=== PATIENT | male | born 1970 | race Caucasian/White ===

== ENCOUNTER 2018-07-15 18:49 | Inpatient (IN) | payer MEDICARE ==
--- NOTE | 2018-07-15 19:16 | ED ---
Lower Extremity - HPI Summary HPI Summary: A 48 y/o M TOMY presents to ED with c/o LE edema, R worse than L, onset two days ago. Associated sx: weeping from RLE. Denies fever, dyspnea, LE pain. Pt used to be seen at the wound clinic in [place] once a week, but last went approx 4-5 months ago. PMHx: enlarged heart. Denies previous CA. Rare ETOH. - History of Current Complaint Chief Complaint: EDExtremityLower Stated Complaint: EDEMA IN BOTH FEET Time Seen by Provider: 07/15/18 19:14 Hx Obtained From: Patient Onset/Duration: Days - weeping onset 2 days ago Severity Initially: Moderate Severity Currently: Moderate Pain Intensity: 0 Pain Scale Used: 0-10 Numeric Timing: Constant Associated Signs And Symptoms: Positive: Other - weeping from RLE - Allergies/Home Medications Allergies/Adverse Reactions: Allergies Allergy/AdvReac Type Severity Reaction Status Date / Time No Known Allergies Allergy Verified 05/06/15 23:14 Home Medications: Home Medications Lasix 10 mg PO DAILY 07/15/18 [History Confirmed 07/15/18] PMH/Surg Hx/FS Hx/Imm Hx Previously Healthy: No - pos: morbidly obese Cardiovascular History: Reports: Hx Hypertension, Other Cardiovascular Problems/ Disorders - enlarged heart Denies: Hx Myocardial Infarction Musculoskeletal History: Reports: Other Musculoskeletal History - chronic LE edema Infectious Disease History: No Infectious Disease History: Denies: Traveled Outside the [place] in Last 30 Days - Family History Known Family History: Positive: Hypertension Negative: Cardiac Disease, Diabetes - Social History Occupation: Employed Full-time Lives: Alone Alcohol Use: None Hx Substance Use: No Substance Use Type: Reports: None Hx Tobacco Use: Yes Smoking Status (MU): Heavy Every Day Tobacco Smoker Review of Systems Negative: Fever Positive: Other - neg: dyspnea Positive: Edema - bilat LE, Other - RLE weeping. Negative: Myalgia - LE All Other Systems Reviewed And Are Negative: Yes Physical Exam - Summary Physical Exam Summary: VITAL SIGNS: Reviewed. GENERAL: Patient is a morbidly obese MALE who is lying comfortable in the stretcher. Patient is not in any acute respiratory distress. HEAD AND FACE: No signs of trauma. No ecchymosis, hematomas or skull depressions. No sinus tenderness. EYES: PERRLA, EOMI x 2, No injected conjunctiva, no nystagmus. EARS: Hearing grossly intact. Ear canals and tympanic membranes are within normal limits. MOUTH: Oropharynx within normal limits. NECK: Supple, trachea is midline, no adenopathy, no JVD, no carotid bruit, no c- spine tenderness, neck with full ROM. CHEST: Symmetric, no tenderness at palpation LUNGS: Clear to auscultation bilaterally. No wheezing or crackles. Decreased breath sounds bilaterally. CVS: Tachy, S1 and S2 present, no murmurs or gallops appreciated. ABDOMEN: The lower abd is edematous, erythematous, tender EXTREMITIES: Bilat LE edema with thickened skin, weeping and malodorous NEUROVASCULAR: Intact including LE. Good sensation bilaterally. I was unable to feel his pulses due to the edema, but both legs are normal temperature. NEURO: Alert and oriented x 3. No acute neurological deficits. Speech is normal and follows commands. SKIN: Dry and warm, pale GENITAL: The scrotum is edematous, erythematous, tender Triage Information Reviewed: Yes Vital Signs On Initial Exam: Initial Vitals Temp Pulse Resp BP Pulse Ox 98.1 F 113 26 168/107 96 07/15/18 18:54 07/15/18 18:54 07/15/18 18:54 07/15/18 18:54 07/15/18 18:54 Vital Signs Reviewed: Yes Diagnostics - Vital Signs Vital Signs Temp Pulse Resp BP Pulse Ox 07/15/18 18:54 98.1 F 113 26 168/107 96 - Laboratory Result Diagrams: 07/15/18 20:30 07/15/18 20:30 Lab Statement: Any lab studies that have been ordered have been reviewed, and results considered in the medical decision making process. - Radiology CXR Xray Interpretation: Positive (See Comments) - Cardiomegaly and bilateral venous congestion consistent with congestive heart failure Radiology Interpretation Completed By: ED Physician - Pending official report. - EKG 1945 Cardiac Rate: NL - at 95 bpm EKG Rhythm: Sinus Rhythm ST Segment: Non-Specific - Diffuse Subtle ST depression. EKG Interpretation: nml axis, RBBB Re-Evaluation - Re-Evaluation 1 Re-Evaluation Time: 21:01 Change: Worse Comment: Pt is c/o SOB. He notes being in the [facility] 2 months ago for similar sx. Lower Extremity Course/Dx - Course Course Of Treatment: Pt is a 48 y/o morbidly obese M presenting with bilat LE edema and weeping. He denies fever, dyspnea, LE pain. Upon PE, found bilat LE edema with thickened skin that was weeping and malodorous. The lower abd and scrotum were edematous, erythematour, and tender. Pt was being seen at the wound clinic in [place] once a week, but last went approx 4-5 months ago. - Diagnoses Provider Diagnoses: CHF (congestive heart failure), Morbid obesity, Bilateral edema of lower extremity, Lower extremity cellulitis - Physician Notifications Discussed Care Of Patient With: Andrew Quiros MD - Hospitalist Time Discussed With Above Provider: 21:23 Instructed by Provider To: Admit As Inpatient Discharge - Sign-Out/Discharge Documenting (check all that apply): Patient Departure - ADM - Discharge Plan Condition: Fair Disposition: ADMITTED TO [facility] Referrals: Dahlia Cabrera MD [Primary Care Provider] - - Billing Disposition and Condition Condition: FAIR Disposition: Admitted to [facility] - Attestation Statements Document Initiated by Scribe: Yes Documenting Scribe: Emily Austin Provider For Whom Scribe is Documenting (Include Credential): Dr. Aiyana Mccoy MD Scribe Attestation: Emily Chin scribed for Dr. Aiyana Mccoy MD on 07/15/18 at 2210. Scribe Documentation Reviewed: Yes Provider Attestation: The documentation as recorded by the Emily pang accurately reflects the service I personally performed and the decisions made by Dr. Aiyana wray MD
[2018-07-15] MEDS ORDERED: Vancomycin(*) 1,000 MG in NS 0.9% 250 ML* 250 ML IVPB ONE (19:37)
[2018-07-15] MEDS ORDERED: Furosemide IV* 10 MG/ML VIAL (40 MG) IV ONE ×2 (20:09→21:04)
[2018-07-15 20:51] LABS: ABS Basophils 0 10^3/ul (0-0.2); ABS Eosinophils 0.2 10^3/ul (0-0.6); ABS Lymphocytes 0.9 10^3/ul (1.0-4.8); ABS Monocytes 0.5 10^3/ul (0-0.8); ABS Neutrophils 4.3 10^3/ul (1.5-7.7); ABS Nucleated RBC 0 10^3/ul; Eosinophil % 2.8 % (0-6); Hematocrit 41 % (42-52); Hemoglobin 13.4 g/dl (14.0-18.0); Lymphocyte % 14.7 % (25-47); Mean Corpuscular HGB Conc 32 g/dl (31-36); Mean Corpuscular Hemoglobin 27 pg (27-31); Mean Corpuscular Volume 82 fL (80-94); Mean Platelet Volume 7.7 um3 (7.4-10.4); Nucleated Red Blood Cells % 0.1; Platelet Count 317 10^3/ul (150-450); Red Blood Count 5.06 10^6/ul (4.00-5.40); Red Cell Distribution Width 18 % (10.5-15); White Blood Count 5.8 10^3/ul (3.5-10.8)
[2018-07-15 20:59] LABS: Urine Appearance Clear; Urine Blood 3+ (Negative); Urine Color Amber; Urine Ketones Trace (Negative); Urine Protein 2+(100 mg/dL) (Negative); Urine Red Blood Cell 2+(6-10/hpf) (Absent); Urine Specific Gravity 1.024 (1.010-1.030); Urine Urobilinogen Positive (Negative); Urine White Blood Cell 1+(6-10/hpf) (Absent)
[2018-07-15 21:01] LABS: INR 1.14 (0.77-1.02)
[2018-07-15] MEDS ORDERED: Furosemide IV* 10 MG/ML VIAL (40 MG) ONE (21:03)
[2018-07-15] MEDS ORDERED: Nitroglycerin 2% OINT* 1 GM PAK ONE (21:03)
[2018-07-15] MEDS ORDERED: Nitroglycerin 2% OINT* 1 GM PAK TOPICAL ONE (21:05)
[2018-07-15 21:06] LABS: EGFR Non-African American 111.6 (>60)
[2018-07-15] MEDS ORDERED: Clopidogrel TAB* 300 MG PO ONE (21:18)
[2018-07-15] MEDS ORDERED: Aspirin 81 mg CHEW TAB* 81 MG TAB.CHEW PO ONE (21:25)
[2018-07-15] MEDS ORDERED: Lidocaine 2% JELLY* 6 ML JELLY TOPICAL ONE (21:39)
[2018-07-15] MEDS ORDERED: Enoxaparin(*) 80 MG/0.8 ML SYR SUBCUT SCH (22:00)
--- NOTE | 2018-07-15 22:01 | HP ---
H&P (Free Text) History and Physical: PCP: Daquan Cabrera MD Date/Time: 07/15/2018 2130 CC: swollen legs HPI: Mr Epperson is a 48YO male HX chronic peripheral edema & super morbid obesity presents with weeping of his BLE for the past 2 days with onset of SOB today. He denies F/C, sweats, chest discomfort, palpitations, light-headedness, N/V/D, LE pain, or changes in bowel/bladder. He became concerned about the weeping of his legs and called EMS. During ED evaluation his saO2 on RA dropped into the 70s and BiPap was initiated. pCXR revealed pulmonary edema. Labs were most notable for troponin of 0.22 and BNP of 416. ABG showed a mild respiratory acidosis w/ pH 7.34, pCO2 48, pO2 101, HCO3 24 on 100% fiO2. PMedHx peripheral edema super morbid obesity pneumonia complicated by collapsed R lung Ambulatory Orders NK [No Home Medications Reported] 07/15/18 Allergies No Known Allergies Allergy (Verified 05/06/15 23:14) PSurgHx R lung surgery to repair collapse SocHx: 1/2PPD cigarettes w/ >10PYHX, <2 alcoholic drinks weekly, denies recreational drugs; lives alone; disabled; full code status FamHx: Mother passed at 63YO 2nd brain stem aneurysm. Father is alive without known illness. Sister & brother are reportedly healthy. ROS: as above, otherwise reviewed and all were negative vitals: Vital Signs Temp 36.7 C 07/15/18 18:54 Pulse 104 07/15/18 21:05 Resp 32 07/15/18 21:05 BP 169/90 07/15/18 21:05 Pulse Ox 76 07/15/18 21:05 Intake & Output 07/14/18 07/15/18 07/15/18 23:59 11:59 23:59 Weight 167.829 kg Constitutional: NAD, normally developed, malodorous super morbidly obese white male HEENM: atraumatic; sclera/conjunctiva: anicteric/clear; hearing: clinically intact; oropharynx: clear, mucosa moist Neck: soft tissue: nontender; thyroid: normal Pulmonary: BiPap 16/8 100%, diminished bilaterally with scant bibasilar fine crackles, fair aeration, no accessory muscle use CV: TR/RR, normal S1S2, no carotid bruit, no jugular venous distention, trace B DP/PT, severe chronic BLE edema with weeping areas Abdominal: soft, non-distended, non-tender, no rebound/guarding/rigidity, normoactive bowel sounds, no hepatosplenomegaly or masses, no costovertebral angle tenderness Musculoskeletal: general: grossly intact, non-tender Integumental: chronic severe hyperkeratosis BLE with weeping areas but no overt purulence or erythema Psychiatric orientation: AA&O to PPS affect: calm mood: cooperative eye contact: fair to good content: reliable responses: timely insight: fair to poor Testing: Lab Results 07/15/18 07/15/18 07/15/18 Range/Units 20:30 20:30 20:30 WBC 5.8 (3.5-10.8) 10^3/ul RBC 5.06 (4.00-5.40) 10^6/ul Hgb 13.4 L (14.0-18.0) g/dl Hct 41 L (42-52) % MCV 82 (80-94) fL MCH 27 (27-31) pg MCHC 32 (31-36) g/dl RDW 18 H (10.5-15) % Plt Count 317 (150-450) 10^3/ul MPV 7.7 (7.4-10.4) um3 Neut % (Auto) 73.5 (38-83) % Lymph % (Auto) 14.7 L (25-47) % Faulkner % (Auto) 8.5 H (0-7) % Eos % (Auto) 2.8 (0-6) % Baso % (Auto) 0.5 (0-2) % Absolute Neuts (auto) 4.3 (1.5-7.7) 10^3/ul Absolute Lymphs (auto) 0.9 L (1.0-4.8) 10^3/ul Absolute Monos (auto) 0.5 (0-0.8) 10^3/ul Absolute Eos (auto) 0.2 (0-0.6) 10^3/ul Absolute Basos (auto) 0 (0-0.2) 10^3/ul Absolute Nucleated RBC 0 10^3/ul Nucleated RBC % 0.1 INR (Anticoag Therapy) 1.14 H (0.77-1.02) APTT 32.2 (26.0-36.3) seconds Patient Temperature ABG pH (7.35-7.45) ABG pH (Temp Correct) ABG pCO2 (35-45) mmHg ABG pCO2 (Temp Corrct ABG pO2 (80-100) mmHg ABG pO2 (Temp Correct ABG HCO3 (19-31) mmol/L ABG O2 Saturation (95-98) % ABG Base Excess (-2.0-2.0) Respiration Rate O2 Delivery Device Ventilator Type Vent Mode FiO2 Inspiratory Time PEEP Pressure Support Pressure Control EPAP IPAP BiPAP Sodium 139 (135-145) mmol/L Potassium 3.7 (3.5-5.0) mmol/L Chloride 106 (101-111) mmol/L Carbon Dioxide 25 (22-32) mmol/L Anion Gap 8 (2-11) mmol/L BUN 15 (6-24) mg/dL Creatinine 0.75 (0.67-1.17) mg/dL Est GFR ( Amer) 135.1 (>60) Est GFR (Non-Af Amer) 111.6 (>60) BUN/Creatinine Ratio 20.0 (8-20) Glucose 90 (70-100) mg/dL Lactic Acid (0.5-2.0) mmol/L Calcium 8.7 (8.6-10.3) mg/dL Total Bilirubin 1.70 H (0.2-1.0) mg/dL AST 41 H (13-39) U/L ALT 21 (7-52) U/L Alkaline Phosphatase 123 H (34-104) U/L Total Creatine Kinase 342 H (10-223) U/L Troponin I 0.22 H* (<0.04) ng/mL C-Reactive Protein 95.08 H (<8.01) mg/L B-Natriuretic Peptide ( - 100) pg/mL Total Protein 7.2 (6.4-8.9) g/dL Albumin 3.0 L (3.2-5.2) g/dL Globulin 4.2 H (2-4) g/dL Albumin/Globulin Ratio 0.7 L (1-3) Urine Color Urine Appearance Urine pH (5-9) Ur Specific [place] (1.010-1.030) Urine Protein (Negative) Urine Ketones (Negative) Urine Blood (Negative) Urine Nitrate (Negative) Urine Bilirubin (Negative) Urine Urobilinogen (Negative) Ur Leukocyte Esterase (Negative) Urine WBC (Auto) (Absent) Urine RBC (Auto) (Absent) Ur Squamous Epith Cells (Absent) Calcium Oxalate Crystal (Absent) Urine Bacteria (Absent) Hyaline Casts (Absent) Urine Glucose (Negative) Blood Type Antibody Screen 07/15/18 07/15/18 07/15/18 Range/Units 20:31 20:33 20:34 WBC (3.5-10.8) 10^3/ul RBC (4.00-5.40) 10^6/ul Hgb (14.0-18.0) g/dl Hct (42-52) % MCV (80-94) fL MCH (27-31) pg MCHC (31-36) g/dl RDW (10.5-15) % Plt Count (150-450) 10^3/ul MPV (7.4-10.4) um3 Neut % (Auto) (38-83) % Lymph % (Auto) (25-47) % Faulkner % (Auto) (0-7) % Eos % (Auto) (0-6) % Baso % (Auto) (0-2) % Absolute Neuts (auto) (1.5-7.7) 10^3/ul Absolute Lymphs (auto) (1.0-4.8) 10^3/ul Absolute Monos (auto) (0-0.8) 10^3/ul Absolute Eos (auto) (0-0.6) 10^3/ul Absolute Basos (auto) (0-0.2) 10^3/ul Absolute Nucleated RBC 10^3/ul Nucleated RBC % INR (Anticoag Therapy) (0.77-1.02) APTT (26.0-36.3) seconds Patient Temperature ABG pH (7.35-7.45) ABG pH (Temp Correct) ABG pCO2 (35-45) mmHg ABG pCO2 (Temp Corrct ABG pO2 (80-100) mmHg ABG pO2 (Temp Correct ABG HCO3 (19-31) mmol/L ABG O2 Saturation (95-98) % ABG Base Excess (-2.0-2.0) Respiration Rate O2 Delivery Device Ventilator Type Vent Mode FiO2 Inspiratory Time PEEP Pressure Support Pressure Control EPAP IPAP BiPAP Sodium (135-145) mmol/L Potassium (3.5-5.0) mmol/L Chloride (101-111) mmol/L Carbon Dioxide (22-32) mmol/L Anion Gap (2-11) mmol/L BUN (6-24) mg/dL Creatinine (0.67-1.17) mg/dL Est GFR ( Amer) (>60) Est GFR (Non-Af Amer) (>60) BUN/Creatinine Ratio (8-20) Glucose (70-100) mg/dL Lactic Acid 0.7 (0.5-2.0) mmol/L Calcium (8.6-10.3) mg/dL Total Bilirubin (0.2-1.0) mg/dL AST (13-39) U/L ALT (7-52) U/L Alkaline Phosphatase (34-104) U/L Total Creatine Kinase (10-223) U/L Troponin I (<0.04) ng/mL C-Reactive Protein (<8.01) mg/L B-Natriuretic Peptide 416 H ( - 100) pg/mL Total Protein (6.4-8.9) g/dL Albumin (3.2-5.2) g/dL Globulin (2-4) g/dL Albumin/Globulin Ratio (1-3) Urine Color Jayne Urine Appearance Clear Urine pH 6.0 (5-9) Ur Specific [place] 1.024 (1.010-1.030) Urine Protein 2+(100 mg/dl) A (Negative) Urine Ketones Trace A (Negative) Urine Blood 3+ A (Negative) Urine Nitrate Negative (Negative) Urine Bilirubin Negative (Negative) Urine Urobilinogen Positive A (Negative) Ur Leukocyte Esterase Trace A (Negative) Urine WBC (Auto) 1+(6-10/hpf) A (Absent) Urine RBC (Auto) 2+(6-10/hpf) A (Absent) Ur Squamous Epith Cells Present A (Absent) Calcium Oxalate Crystal Present A (Absent) Urine Bacteria Absent (Absent) Hyaline Casts Present A (Absent) Urine Glucose Negative (Negative) Blood Type Antibody Screen 07/15/18 07/15/18 Range/Units 20:34 21:20 WBC (3.5-10.8) 10^3/ul RBC (4.00-5.40) 10^6/ul Hgb (14.0-18.0) g/dl Hct (42-52) % MCV (80-94) fL MCH (27-31) pg MCHC (31-36) g/dl RDW (10.5-15) % Plt Count (150-450) 10^3/ul MPV (7.4-10.4) um3 Neut % (Auto) (38-83) % Lymph % (Auto) (25-47) % Faulkner % (Auto) (0-7) % Eos % (Auto) (0-6) % Baso % (Auto) (0-2) % Absolute Neuts (auto) (1.5-7.7) 10^3/ul Absolute Lymphs (auto) (1.0-4.8) 10^3/ul Absolute Monos (auto) (0-0.8) 10^3/ul Absolute Eos (auto) (0-0.6) 10^3/ul Absolute Basos (auto) (0-0.2) 10^3/ul Absolute Nucleated RBC 10^3/ul Nucleated RBC % INR (Anticoag Therapy) (0.77-1.02) APTT (26.0-36.3) seconds Patient Temperature Not Reportable ABG pH 7.34 L (7.35-7.45) ABG pH (Temp Correct) Not Reportable ABG pCO2 48 H (35-45) mmHg ABG pCO2 (Temp Corrct Not Reportable ABG pO2 101 H (80-100) mmHg ABG pO2 (Temp Correct Not Reportable ABG HCO3 24.4 (19-31) mmol/L ABG O2 Saturation 97.7 (95-98) % ABG Base Excess -0.5 (-2.0-2.0) Respiration Rate 20 O2 Delivery Device Bipap Ventilator Type Not Reportable Vent Mode Not Reportable FiO2 100 Inspiratory Time Not Reportable PEEP Not Reportable Pressure Support Not Reportable Pressure Control Not Reportable EPAP 8 IPAP 16 BiPAP Not Reportable Sodium (135-145) mmol/L Potassium (3.5-5.0) mmol/L Chloride (101-111) mmol/L Carbon Dioxide (22-32) mmol/L Anion Gap (2-11) mmol/L BUN (6-24) mg/dL Creatinine (0.67-1.17) mg/dL Est GFR ( Amer) (>60) Est GFR (Non-Af Amer) (>60) BUN/Creatinine Ratio (8-20) Glucose (70-100) mg/dL Lactic Acid (0.5-2.0) mmol/L Calcium (8.6-10.3) mg/dL Total Bilirubin (0.2-1.0) mg/dL AST (13-39) U/L ALT (7-52) U/L Alkaline Phosphatase (34-104) U/L Total Creatine Kinase (10-223) U/L Troponin I (<0.04) ng/mL C-Reactive Protein (<8.01) mg/L B-Natriuretic Peptide ( - 100) pg/mL Total Protein (6.4-8.9) g/dL Albumin (3.2-5.2) g/dL Globulin (2-4) g/dL Albumin/Globulin Ratio (1-3) Urine Color Urine Appearance Urine pH (5-9) Ur Specific [place] (1.010-1.030) Urine Protein (Negative) Urine Ketones (Negative) Urine Blood (Negative) Urine Nitrate (Negative) Urine Bilirubin (Negative) Urine Urobilinogen (Negative) Ur Leukocyte Esterase (Negative) Urine WBC (Auto) (Absent) Urine RBC (Auto) (Absent) Ur Squamous Epith Cells (Absent) Calcium Oxalate Crystal (Absent) Urine Bacteria (Absent) Hyaline Casts (Absent) Urine Glucose (Negative) Blood Type O Negative Antibody Screen Pending ECG, personally reviewed: sinus RBBB rate 95, diffuse non-diagnostic ST-T abnormalities; no comparison CXR, personally reviewed: cardiomegaly with cephalization & congestive changes; no comparison Impression: 48M HX peripheral edema, super morbid obesity, & pneumonia complicated by collapsed R lung presents with acute systolic HF & NSTEMI DIAGNOSIS & PLAN Primary acute systolic HF with 2nd hypoxic respiratory failure : furosemide diuresis : strict I&Os : daily weights : 1500cc/day fluid restriction when cleared to take PO : NPO x/ meds w/ sips water : ECHO in AM : BiPap 16/8 @ 100% fiO2 : ICU monitoring : supportive care elevated troponin : uncertain if demand or primary : aspirin 324mg chew given in ED : clopidogrel 300mg given in ED : enoxaparin 1mg/kg given in ED, will continue : no beta jeanne 2nd acute decompensated HF elevated d-dimer : given enoxaparin 160mg SQ in ED, will continue : consider CTA chest once further stabilized to r/o PE Secondary chronic BLE edema : consider referral to lymphedema clinic upon D/C super morbid obesity : consider referral for bariatric surgical evaluation upon D/C Admission Rational: Inpatient as without the above interventions the risk of impending adverse outcome is unacceptably high; inappropriate for the outpatient setting DVTp: enoxaparin 1mg/kg SQ BID Code Status: full HCP: mother Michelle hCu Critical Care time: 65minutes with >50% spent at the bedside obtaining a history , performing the examination, advising of diagnosis & treatment options along with risks/benefits/reasoning; remainder spent discussing with ER MD, reviewing labs and radiology exams
[2018-07-15] MEDS ORDERED: Acetaminophen TAB* 325 MG PO PRN (22:38)
[2018-07-15] MEDS ORDERED: traMADol TAB* 50 MG PO PRN (22:40)
[2018-07-15] MEDS ORDERED: Ondansetron ODT TAB* 4 MG PO PRN (22:40)
[2018-07-15] MEDS ORDERED: Mouth Piece, Nicotine* 1 EACH CARTRIDGE INH ONE (22:48)
[2018-07-16 05:30] LABS: Hematocrit 41 % (42-52); Hemoglobin 13.1 g/dl (14.0-18.0); Mean Corpuscular HGB Conc 32 g/dl (31-36); Mean Corpuscular Hemoglobin 26 pg (27-31); Mean Corpuscular Volume 79 fL (80-94); Mean Platelet Volume 7.3 um3 (7.4-10.4); Platelet Count 312 10^3/ul (150-450); Red Blood Count 5.13 10^6/ul (4.00-5.40); Red Cell Distribution Width 18 % (10.5-15); White Blood Count 6.8 10^3/ul (3.5-10.8)
[2018-07-16] MEDS: Omeprazole CAP* 20 MG PO SCH (06:45)
[2018-07-16] MEDS: Nicotine Inhaler* 10 MG AMP INH PRN (06:49)
--- NOTE | 2018-07-16 07:37 | RAD ---
Indication: Shortness of breath. Bilateral lower extremity edema. Single frontal view of the chest performed at 1949 hours was reviewed. No prior study is available. Cardiomegaly. Mild interstitial prominence consistent with vascular congestion is noted. IMPRESSION: CARDIOMEGALY WITH VASCULAR CONGESTION. R0
[2018-07-16] MEDS: Furosemide IV* 10 MG/ML 10 ML VIAL (100 MG) IV SCH ×2 (07:49→12:09)
[2018-07-16] MEDS: Docusate CAP* 100 MG PO SCH ×2 (07:49→21:13)
[2018-07-16] MEDS ORDERED: Vancomycin(*) 2,000 MG in NS 0.9% 500 ML* 500 ML IVPB ONE (08:00)
[2018-07-16] MEDS: Cefepime 1 GM in Dextrose(*) 1 GM/50 ML BAG IV SCH ×2 (08:03→19:54)
--- NOTE | 2018-07-16 08:17 | PN ---
Subjective Date of Service: 07/16/18 Interval History: Pt is feeling ok today. He denies any SOB currently (he is on BiPAP at the time of my evaluation). He denies pain. He states his legs have been swollen at the current level for quite some time but only started weeping a few days ago. Objective Active Medications: Acetaminophen (Tylenol Tab*) 650 mg PO Q6H PRN PRN Reason: FEVER/PAIN Docusate Sodium (Colace Cap*) 200 mg PO BID [facility] Last Admin: 07/16/18 07:49 Dose: 200 mg Enoxaparin Sodium (Lovenox(*)) 160 mg SUBCUT Q12H [facility] Furosemide (Lasix Iv*) 60 mg IV 0800,1200 [facility] Last Admin: 07/16/18 07:49 Dose: 60 mg Cefepime HCl (Maxipime 1 Gm In Dextrose Duplex (*)) 1 gm in 50 mls @ 100 mls/ hr IV Q12H [facility] Last Admin: 07/16/18 08:03 Dose: 100 mls/hr Vancomycin HCl 2,000 mg/ (Sodium Chloride) 500 mls @ 250 mls/hr IVPB ONCE ONE; Protocol Stop: 07/16/18 09:59 Melatonin (Melatonin) 3 mg PO BEDTIME PRN; Protocol PRN Reason: Sleep Nicotine (Nicotine Inhaler*) 10 mg INH Q2H PRN PRN Reason: CRAVING Last Admin: 07/16/18 06:49 Dose: 10 mg Omeprazole (Prilosec Cap*) 20 mg PO DAILY@0600 [facility] Last Admin: 07/16/18 06:45 Dose: 20 mg Ondansetron HCl (Zofran Odt Tab*) 4 mg PO Q6H PRN PRN Reason: n/v Tramadol HCl (Ultram*) 50 mg PO Q6H PRN PRN Reason: PAIN Vital Signs - 8 hr 07/16/18 07/16/18 07/16/18 00:24 00:54 01:00 Temperature Pulse Rate 84 Respiratory 11 17 Rate Blood Pressure 151/110 (mmHg) O2 Sat by Pulse 100 100 Oximetry 07/16/18 07/16/18 07/16/18 01:05 01:16 01:18 Temperature 97 F Pulse Rate 96 92 92 Respiratory 17 23 Rate Blood Pressure 160/108 141/97 (mmHg) O2 Sat by Pulse 100 100 95 Oximetry 07/16/18 07/16/18 07/16/18 01:20 01:27 01:31 Temperature 98.3 F Pulse Rate 85 98 81 Respiratory 23 20 22 Rate Blood Pressure 141/97 147/102 145/81 (mmHg) O2 Sat by Pulse 100 100 100 Oximetry 07/16/18 07/16/18 07/16/18 01:46 02:00 02:01 Temperature Pulse Rate 83 83 81 Respiratory 22 19 20 Rate Blood Pressure 137/86 133/75 (mmHg) O2 Sat by Pulse 100 100 100 Oximetry 07/16/18 07/16/18 07/16/18 03:00 03:25 04:00 Temperature 97.0 F Pulse Rate 87 84 Respiratory 21 20 Rate Blood Pressure (mmHg) O2 Sat by Pulse 100 100 Oximetry 07/16/18 07/16/18 07/16/18 04:31 05:00 05:01 Temperature Pulse Rate 86 85 85 Respiratory 21 22 21 Rate Blood Pressure 121/68 111/60 (mmHg) O2 Sat by Pulse 100 98 99 Oximetry 07/16/18 07/16/18 07/16/18 06:00 06:01 08:00 Temperature 98.7 F Pulse Rate 85 86 Respiratory 23 22 Rate Blood Pressure 135/63 (mmHg) O2 Sat by Pulse 98 99 Oximetry Oxygen Devices in Use Now: Nasal Cannula Appearance: Super morbidly obese male sitting up in bed with BiPAP on, NAD Eyes: No Scleral Icterus Ears/Nose/Mouth/Throat: Mucous Membranes Moist Respiratory: Symmetrical Chest Expansion and Respiratory Effort, Clear to Auscultation - anteriorly Cardiovascular: NL Sounds; No Murmurs; No JVD, RRR, - - marked anasarca to waist Abdominal: NL Sounds; No Tenderness; No Distention Extremities: No Clubbing, Cyanosis Skin: - - very thickened, fissured, skin noted on both lower legs L>R, from the left lower leg there is purulent drainage Neurological: Alert and Oriented x 3 Result Diagrams: 07/16/18 05:20 07/16/18 05:20 Microbiology and Other Data: Microbiology 07/16/18 01:05 Nasal Screen MRSA (PCR) - Final Nasal Mrsa Not Detected Assess/Plan/Problems-Billing Mr Epperson is a 48 yo M who states he is "in between doctors currently" who is on no medications and is super morbidly obese who presented to the ER with c/o weeping from the legs and was admitted for possible decompensated CHF. - Patient Problems (1) Acute decompensated heart failure Current Visit: Yes Status: Acute Code(s): I50.9 - HEART FAILURE, UNSPECIFIED SNOMED Code(s): 38422373 Comment: Pt likely with acute on chronic decompensated CHF. Pt needs echo to determine type. Plan for echo this AM. Cardiology consult pending. Will continue BID IV lasix and monitor I/Os very closely. I suspect much of his LE edema is secondary to lymphedema and may not respond to IV diuresis. (2) Cellulitis and abscess of left leg Current Visit: Yes Status: Acute Code(s): L03.116 - CELLULITIS OF LEFT LOWER LIMB; L02.416 - CUTANEOUS ABSCESS OF LEFT LOWER LIMB SNOMED Code(s): 938021312 Comment: While the patient is afebrile and does not have a leukocytosis he has purulent drainage leaking from 2 different spots on the left lower leg. Will start vancomycin and cefepime for now. Will try to obtain US or CT today to eval for underlying abscess. There is marked erythema of both legs especially noted on the feet and thighs. Monitor for improvement in appearance and smell (very foul smelling). (3) Elevated troponin Current Visit: Yes Status: Acute Code(s): R74.8 - ABNORMAL LEVELS OF OTHER SERUM ENZYMES SNOMED Code(s): 520085155 Comment: Likley secondary to decompensated CHF. Troponin is holding steady. Await further recommendations from Dr. Gaitan. Pt is currently on therapeutic dosed lovenox for the elevated trop and d-dimer. Doubt PE as pt wihtout any respiratory complaints and is not tachycardic. Will continue current dose of lovneox for now but can likely decrease just to DVT prophylaxis dosing soon. (4) Morbid obesity Current Visit: Yes Status: Acute Code(s): E66.01 - MORBID (SEVERE) OBESITY DUE TO EXCESS CALORIES SNOMED Code(s): 856157915 Comment: Encourage diet and weight loss. The patient's morbid obesity is likely contributing to his infection. Check HbA1c. (5) DVT prophylaxis Current Visit: Yes Status: Acute Code(s): LKA0844 - SNOMED Code(s): 302510662 Comment: lovenox (6) Full code status Current Visit: Yes Status: Acute Code(s): Z78.9 - OTHER SPECIFIED HEALTH STATUS SNOMED Code(s): 797841055
[2018-07-16] MEDS ORDERED: Perflutren Lipid Microsphere* 3 ML VIAL ONE (09:50)
[2018-07-16] MEDS ORDERED: Vancomycin per Pharmacy* NOTE FOLLOW UP PRN (10:54)
--- NOTE | 2018-07-16 11:14 | CONSULT ---
Subjective Date of Service: 07/16/18 Interval History: Admission Date: 07/15/18 Date of consult: 07/16/2018 PCP: Currently none Service: Hospitalist CC: Edema, lower extremity and scrotal, Dyspnea Reason for consult: CHF, Abnormal troponin level HPI: Mr Epperson is a year old man with a history as below who has not been adherent with diuretics last few months (takes both furosemide as well as another one) and BP medication because he is in between PCPs. He has been adherent with CPAP. He has what sounds like a new PCP appointment with Dr. Nash later this month. He has received IV diuretics and diuresed about 10 liters since admission and also received IV antibiotics for a lower extremity wound infection. He remains mildly tachypneic but his breathing has improved. He is now off of bipap. He denies any chest discomfort, palpitations or syncope. Pmhx: - Morbid obesity - Chronic HFpEF - Pulmonary HTN, like mixed group II/III - HTN - Sleep apnea - Chronic troponin elevation. 01/2013 troponin I was 0.22 to 0.21 to 0.25 - CHF admission 05/2014 [facility] with elevated troponin I of 0.58 to 0.68 to 0.66 and pro-BNP of 2610 at that time. Was found with an incomplete RBBB, a left ventricular systolic function and echocardiogram "seems to be normal" per Dr. Izaguirre consult note. There was LVH and estimated PASP of 53 mmHg. Diuretic recommended at that time. He had volume overload at that time in setting of lower extremity wound. He was discharged with cardiac medications of metoprolol , amlodipine, aspirin and bumex 1 mg po daily. - History of acute kidney injury - Chronic edema - R lung decortication s/p pneumonia in past Soc Hx: + tobacco use, occasional ETOH, no drugs Allergies No Known Allergies Allergy (Verified 05/06/15 23:14) FamHx : Mother passed at 63YO 2nd brain stem aneurysm. Father is alive without known illness. Sister & brother are reportedly healthy and live nearby Medications Active Medications: Acetaminophen (Tylenol Tab*) 650 mg PO Q6H PRN PRN Reason: FEVER/PAIN Docusate Sodium (Colace Cap*) 200 mg PO BID [facility] Last Admin: 07/16/18 07:49 Dose: 200 mg Enoxaparin Sodium (Lovenox(*)) 160 mg SUBCUT Q12H [facility] Furosemide (Lasix Iv*) 60 mg IV 0800,1200 [facility] Last Admin: 07/16/18 07:49 Dose: 60 mg Cefepime HCl (Maxipime 1 Gm In Dextrose Duplex (*)) 1 gm in 50 mls @ 100 mls/ hr IV Q12H [facility] Last Admin: 07/16/18 08:03 Dose: 100 mls/hr Vancomycin HCl 1,000 mg/ (Sodium Chloride) 250 mls @ 166.667 mls/hr IVPB Q6H [facility] Melatonin (Melatonin) 3 mg PO BEDTIME PRN; Protocol PRN Reason: Sleep Nicotine (Nicotine Inhaler*) 10 mg INH Q2H PRN PRN Reason: CRAVING Last Admin: 07/16/18 06:49 Dose: 10 mg Omeprazole (Prilosec Cap*) 20 mg PO DAILY@0600 [facility] Last Admin: 07/16/18 06:45 Dose: 20 mg Ondansetron HCl (Zofran Odt Tab*) 4 mg PO Q6H PRN PRN Reason: n/v Pharmacy Consult (Vancomycin Per Pharmacy*) 1 note FOLLOW UP . PRN PRN Reason: PER PROTOCOL Pharmacy Profile Note (Vancomycin Trough Check) 1 note FOLLOW UP ONCE ONE Stop: 07/17/18 08:31 Tramadol HCl (Ultram*) 50 mg PO Q6H PRN PRN Reason: PAIN Home Medications: NK [No Home Medications Reported] 07/15/18 [History Confirmed 07/15/18] Review of Systems - Measurements Intake and Output: Intake and Output Last 24 Hours 07/14/18 07/15/18 07/16/18 07/17/18 06:59 06:59 06:59 06:59 Intake Total 500 200 Output Total 5610 Balance -5110 200 Weight 430 lb 5.477 oz Intake: IV Fluids 250 IVPB 250 Oral 200 Output: Gonzalez 5610 - Review of Systems Constitutional Symptoms: Positive: Fatigue Negative: Fever Dermatology: Positive: Skin Lesions, Skin Lumps HEENT: Negative: Change in Hearing, Sinus Problem Eyes: Negative: Change in Vision, Double Vision Thyroid: Positive: Weight Gain Negative: Constipation, Palpitations Pulmonary: Positive: Respiratory Distress, Shortness of Breath, Exercise Intolerance Negative: Hemoptysis Cardiology: Positive: Shortness of Breath, Swelling of Ankles, Edema, Orthopnea Negative: Chest Pain, Palpitations, Peripheral Vascular Dis, Syncope, Claudication Gastroenterology: Negative: Abdominal Pain, Nausea, Vomiting, Anorexia, Haematemesis Genital - Urinary: Negative: Dysuria, Hematuria Musculoskeletal: Negative: Joint Pain, Joint Stiffness Endocrinology: Positive: Obesity Negative: Polyuria Hematologic/Lymphatic: Negative: Hx Leukemia, Hx Lymphoma, Use of Anticoagulant, Use of Antiplatelet Drugs Neurology: Negative: Hx of Stroke\\TIA, Hx Seizures Psychiatry: Negative: Unusual Anxiety, Suicidal Ideation Allergic/Immunologic: Negative: Athsma, Hx HIV, Immunocompromise Review of Systems Statement: All other review of systems negative, unless stated above. Objective Vital Signs: Temp Pulse Resp BP Pulse Ox 98.7 F 95 27 120/60 90 07/16/18 08:00 07/16/18 08:01 07/16/18 08:01 07/16/18 08:01 07/16/18 08:01 Oxygen Devices in Use Now: Nasal Cannula Appearance: chronically ill but not toxic appearing, morbidly obese Ears/Nose/Mouth/Throat: Clear Oropharnyx Neck: Trachea Midline, - - uncertain jvp Respiratory: - - mild tachypnea and increased work of breathing, distant sounds Cardiovascular: RRR, - - distant sounds Abdominal: - - obese, soft Extremities: - - very severe edema with chronic skin changes and open wounds Neurological: Alert and Oriented x 3 Laboratory Results: 07/16/18 05:20 07/16/18 05:20 INR (Anticoag Therapy) 1.14 (0.77-1.02) H 07/15/18 20:30 APTT 32.2 seconds (26.0-36.3) 07/15/18 20:30 Total Bilirubin 1.70 mg/dL (0.2-1.0) H 07/15/18 20:30 AST 41 U/L (13-39) H 07/15/18 20:30 ALT 21 U/L (7-52) 07/15/18 20:30 Alkaline Phosphatase 123 U/L (34-104) H 07/15/18 20:30 B-Natriuretic Peptide 416 pg/mL (-100) H 07/15/18 20:34 Total Protein 7.2 g/dL (6.4-8.9) 07/15/18 20:30 Albumin 3.0 g/dL (3.2-5.2) L 07/15/18 20:30 Globulin 4.2 g/dL (2-4) H 07/15/18 20:30 Albumin/Globulin Ratio 0.7 (1-3) L 07/15/18 20:30 07/15/18 07/16/18 07/16/18 20:30 02:43 05:20 Troponin I 0.22 H* 0.22 H* 0.20 H* d-dimer 623 hgba1c 5.9 Diagnostic Imagin01/2013: LVEF 55% Echo this admission: LVEF 54%, septal flattening consistent with RV presure and/ or volume overload, mild-mod LA dilation, RV moderately dilated and modertely redfuced, no significant AoV stenosis by dopp[ler, mild TR, mild-moderate pHTN may be underestimated. CXR admission: vascular congestion EKG Data: EkG admissioN: NSR, incomplete RBBB with non-specific st/t changes Assessment/Plan Patient admitted with decompensated R>L (HFpEF) in setting of medication non- adherence, very morbid obesity, HTN, pulmonary HTN likely mixed group II/III, sleep disordered breathing and ? infection. Patient has an elevated troponin which he has had in the past during similar admissions without evidence of a type 1 plaque disruption KS. This and BNP appear to be related to heart failure. - Continue heavy IV diuresis (responding well) and change to oral at discharge - Consider evaluation for PE given RV dysfunction/septal abnormality on echo and morbid obesity. He is currently being treated with therapeutic lovenox - If not going to be on long-term anticoagulation would start daily primary prevention aspirin at 325 mg po daily instead of 81 mg given the degree of his obesity. - LFT's should improve with further diuresis. Would check lipid panel and once improved start a primary prevention statin. ck only mildly elevated and not a reason to withhold statin - BP currently normal - Patient counseled on weight loss and a heart healthy diet to reduce the risk of future cardiovascular events and - Patient counseled on smoking cessation to reduce the risk of future cardiovascular events and - Patient counseled on need for medication adherence to reduce the risk of future cardiovascular events and . Thank you for allowing me to participate in the cardiovacular care of this patient. Please do not hesitate to contact me with questions or concerns.
[2018-07-16] MEDS: Enoxaparin(*) 80 MG/0.8 ML SYR SUBCUT SCH ×2 (11:19→21:13)
--- NOTE | 2018-07-16 12:07 | ECHO ---
Patient: MARY PAZ [facility] Rec#: [id number] : 1970 Date: 07/16/2018 Age: 48y Height: 180 cm / 70.9 in Weight: 204.5 kg / 450.7 lbs Sex: M BSA: 2.97 Room#: [facility] Admit Date#: 07/15/2018 Type: Inpatient Referring: Josh Martel MD Reading: Rico Gaitan DO Rn Cardiac: Amelia Aguillon RDCS CC: Dahlia Cabrera MD Transthoracic Echocardiogram Indication: CHF BP: 135/63 HR: 91 Rhythm: NSR with PACs Findings History: Morbid obesity, peripheral edema, smoker. Technical Comments: The study is technically limited due to patient body habitus. Completed at 1030. Left Ventricle: The left ventricular size is mild to moderately dilated. Mild concentric left ventricular hypertrophy is observed. Left ventricular systolic function is at the lower limits of normal. The estimated ejection fraction is 50-55%. , volumetric calculation 54% There is septal flattening of the interventricular septum consistent with right ventricular volume or pressure overload. The assessment of diastolic function is non-diagnostic. Left Atrium: The left atrium is mild to moderately dilated. Right Ventricle: The right ventricle is moderately dilated. The right ventricular global systolic function is moderately reduced. Right Atrium: The right atrial cavity size is severely dilated. Aortic Valve: The aortic valve is trileaflet. The aortic valve leaflets are mildly thickened. There is evidence of aortic sclerosis without stenosis. There is mild aortic regurgitation. The mean gradient of the aortic valve is 14 mmHg. The peak instantaneous gradient of the aortic valve is 23 mmHg. Mitral Valve: Mild mitral annular calcification present. The mitral valve leaflets are mildly thickened. There is mild mitral regurgitation. There is no evidence of mitral stenosis. Tricuspid Valve: The tricuspid valve leaflets are normal. There is mild tricuspid regurgitation. The right ventricular systolic pressure is estimated at 49 mmHg. There is evidence of mild to moderate pulmonary hypertension.that may be underestimated in severity There is no tricuspid stenosis. Pulmonic Valve: The pulmonic valve appears normal. There is a trace pulmonic regurgitation. There is no pulmonic stenosis. Pericardium: There is no significant pericardial effusion. Aorta: There is mild dilatation of the ascending aorta. There is no dilatation of the aortic arch. The aortic root is normal in size. Pulmonary Artery: The main pulmonary artery is not well visualized. Venous: The inferior vena cava is dilated. There is an approximate 50% respiratory change in the inferior vena cava dimension. Contrast: Definity was used to optimize study. 3 mL of diluted Definity were utilized. Intravenous contrast was used to enhance endocardial border definition. Conclusions The left ventricular size is mild to moderately dilated. Mild concentric left ventricular hypertrophy is observed. Left ventricular systolic function is at the lower limits of normal. The estimated ejection fraction is 50-55%, volumetric calculation 54% There is septal flattening of the interventricular septum consistent with right ventricular volume or pressure overload. The left atrium is mild to moderately dilated. The right ventricle is moderately dilated. The right ventricular global systolic function is moderately reduced. There is evidence of aortic sclerosis without stenosis by doppler evaluation There is mild tricuspid regurgitation. There is evidence of mild to moderate pulmonary hypertension that may be underestimated in severity Definity was used to optimize study. No prior full reports available for comparison at time of interpretation Measurements Name Value Normal Range RVIDd (AP) 2D 4 cm (0.9 - 2.6) RAd ISD 4CH 7.4 cm (3.4 - 4.9) RA (A4C)W 7.2 cm (2.9 - 4.6) IVSd (2D) 1.1 cm (0.6 - 1) LVPWd (2D) 1.1 cm (0.6 - 1) LVIDd (2D) 6.4 cm (3.6 - 5.4) LVIDs (2D) 5 cm - LV FS (2D) 24 % (25 - 45) Aortic Annulus 2.7 cm (1.4 - 2.6) Ao root diameter (2D) 3.5 cm (2.1 - 3.5) Ascending Ao 4.1 cm (2.1 - 3.4) Aortic arch 2.6 cm (1.8 - 3.4) LA dimension (AP) 2D 5.2 cm (2.3 - 3.8) LAd ISD 4CH 7 cm (2.9 - 5.3) LA ISD 4CH W 5.9 cm (2.5 - 4.5) Name Value Normal Range LA ESV BP (A/L) index 43 ml/m2 - LV EDV SP 4CH (MOD) 216.89 ml - LV ESV SP 4CH (MOD) 96.44 ml - EF SP 4CH (MOD) 55.54 % - LV EDV SP 2CH (MOD) 190.51 ml - LV ESV SP 2CH (MOD) 88.97 ml - EF SP 2CH (MOD) 53.3 % - LV EDV BP 202.27 ml - LV ESV BP 91.97 ml - BP EF (MOD) 54.53 % - LV EDV BP index 67.99 ml/m2 - LV ESV BP index 30.92 ml/m2 - Name Value Normal Range MV E-wave Vmax 1 m/sec - MV deceleration time 282 msec - MV A-wave Vmax 0.9 m/sec - MV E:A ratio 1.1 ratio - LV septal e' Vmax 0.06 m/sec - LV lateral e' Vmax 0.08 m/sec - LV E:e' septal ratio 16.67 ratio - LV E:e' lateral ratio 12.5 ratio - Name Value Normal Range AV Vmax 2.4 m/sec - AV VTI 44.3 cm - AV peak gradient 23 mmHg - AV mean gradient 14 mmHg - LVOT diameter 2.1 cm - LVOT Vmax 1 m/sec - LVOT VTI 19.7 cm - LVOT peak gradient 4 mmHg - LVOT mean gradient 3 mmHg - DOI (VTI) 0.44 ratio - JOSIAH Vmax 1.3 m/sec - Name Value Normal Range TR Vmax 3.2 m/sec - TR peak gradient 41 mmHg - RAP 8 mmHg - RVSP 49 mmHg - IVC diameter 3 cm - Name Value Normal Range PV Vmax 1.2 m/sec - PV peak gradient 6 mmHg -
[2018-07-16] MEDS: Vancomycin(*) 1,000 MG in NS 0.9% 250 ML* 250 ML IVPB SCH ×2 (15:29→21:13)
[2018-07-16] MEDS: Melatonin 3 MG TAB PO PRN (21:14)
[2018-07-17] MEDS: Vancomycin(*) 1,000 MG in NS 0.9% 250 ML* 250 ML IVPB SCH ×4 (03:19→21:00)
[2018-07-17] MEDS: Omeprazole CAP* 20 MG PO SCH (06:26)
[2018-07-17 06:51] LABS: ABS Basophils 0 10^3/ul (0-0.2); ABS Eosinophils 0.2 10^3/ul (0-0.6); ABS Lymphocytes 0.8 10^3/ul (1.0-4.8); ABS Monocytes 0.6 10^3/ul (0-0.8); ABS Neutrophils 3.4 10^3/ul (1.5-7.7); ABS Nucleated RBC 0 10^3/ul; Eosinophil % 3.8 % (0-6); Hematocrit 40 % (42-52); Hemoglobin 12.5 g/dl (14.0-18.0); Lymphocyte % 15.4 % (25-47); Mean Corpuscular HGB Conc 32 g/dl (31-36); Mean Corpuscular Hemoglobin 25 pg (27-31); Mean Corpuscular Volume 80 fL (80-94); Mean Platelet Volume 7.1 um3 (7.4-10.4); Nucleated Red Blood Cells % 0.1; Platelet Count 297 10^3/ul (150-450); Red Blood Count 4.93 10^6/ul (4.00-5.40); Red Cell Distribution Width 18 % (10.5-15); White Blood Count 5.1 10^3/ul (3.5-10.8)
[2018-07-17 07:01] LABS: EGFR Non-African American 106.7 (>60)
[2018-07-17] MEDS ORDERED: Magnesium Sulfate IV* 3 GM in NS 0.9% 100 ML* 100 ML IVPB ONE (07:05)
[2018-07-17] MEDS: Cefepime 1 GM in Dextrose(*) 1 GM/50 ML BAG IV SCH ×2 (07:58→20:49)
[2018-07-17] MEDS: Furosemide IV* 10 MG/ML 10 ML VIAL (100 MG) IV SCH ×2 (07:58→11:58)
[2018-07-17] MEDS: Docusate CAP* 100 MG PO SCH ×2 (07:59→20:58)
[2018-07-17] MEDS: Potassium Chlor TAB* 20 MEQ TAB.ER PO SCH ×2 (07:59→11:58)
--- NOTE | 2018-07-17 08:15 | RAD ---
HISTORY: eval for abscess of L lower leg (purulent drainage COMPARISONS: None. TECHNIQUE: Multiple transverse and longitudinal ultrasound images were obtained of the area of clinical abnormality using grayscale and color Doppler imaging. FINDINGS: There is extensive subcutaneous edema with multiple subcutaneous varicosities. There is no loculated fluid collection. IMPRESSION: EXTENSIVE SUBCUTANEOUS EDEMA CONSISTENT WITH CELLULITIS GIVEN THE CLINICAL HISTORY. THERE IS NO LOCULATED FLUID COLLECTION TO SUGGEST ABSCESS.
[2018-07-17] MEDS ORDERED: Vancomycin Trough Check NOTE FOLLOW UP ONE (08:30)
[2018-07-17] MEDS: Enoxaparin(*) 80 MG/0.8 ML SYR SUBCUT SCH ×2 (09:19→20:59)
[2018-07-17] MEDS ORDERED: acetaZOLAMIDE TAB* 250 MG PO ONE (09:29)
--- NOTE | 2018-07-17 09:29 | PN ---
Subjective Date of Service: 07/17/18 Interval History: Pt is feeling well. He denies any SOB currently. He has no pain. He has not been out of bed yet. Objective Active Medications: Acetaminophen (Tylenol Tab*) 650 mg PO Q6H PRN PRN Reason: FEVER/PAIN Docusate Sodium (Colace Cap*) 200 mg PO BID [facility] Last Admin: 07/17/18 07:59 Dose: 200 mg Enoxaparin Sodium (Lovenox(*)) 160 mg SUBCUT Q12H [facility] Last Admin: 07/17/18 09:19 Dose: 160 mg Furosemide (Lasix Iv*) 60 mg IV 0800,1200 [facility] Last Admin: 07/17/18 07:58 Dose: 60 mg Cefepime HCl (Maxipime 1 Gm In Dextrose Duplex (*)) 1 gm in 50 mls @ 100 mls/ hr IV Q12H [facility] Last Admin: 07/17/18 07:58 Dose: 100 mls/hr Vancomycin HCl 1,000 mg/ (Sodium Chloride) 250 mls @ 166.667 mls/hr IVPB Q6H [facility] Last Admin: 07/17/18 03:19 Dose: 166.667 mls/hr Melatonin (Melatonin) 3 mg PO BEDTIME PRN; Protocol PRN Reason: Sleep Last Admin: 07/16/18 21:14 Dose: 3 mg Nicotine (Nicotine Inhaler*) 10 mg INH Q2H PRN PRN Reason: CRAVING Last Admin: 07/16/18 06:49 Dose: 10 mg Omeprazole (Prilosec Cap*) 20 mg PO DAILY@0600 [facility] Last Admin: 07/17/18 06:26 Dose: 20 mg Ondansetron HCl (Zofran Odt Tab*) 4 mg PO Q6H PRN PRN Reason: n/v Pharmacy Consult (Vancomycin Per Pharmacy*) 1 note FOLLOW UP . PRN PRN Reason: PER PROTOCOL Potassium Chloride (Klor Con Er Tab*) 40 meq PO Q4H [facility] Stop: 07/17/18 12:01 Last Admin: 07/17/18 07:59 Dose: 40 meq Tramadol HCl (Ultram*) 50 mg PO Q6H PRN PRN Reason: PAIN Last Admin: 07/16/18 22:25 Dose: 50 mg Vital Signs - 8 hr 07/17/18 07/17/1818 02:00 03:00 03:01 Temperature Pulse Rate 80 77 Respiratory 19 28 6 Rate Blood Pressure 147/90 131/75 (mmHg) O2 Sat by Pulse 100 98 Oximetry 07/17/18 07/17/18 07/17/18 04:00 05:00 05:01 Temperature Pulse Rate 70 90 Respiratory 20 15 17 Rate Blood Pressure 142/80 134/95 (mmHg) O2 Sat by Pulse 99 98 Oximetry 07/17/18 07/17/18 07/17/18 06:00 07:00 07:01 Temperature Pulse Rate 80 84 Respiratory 21 18 19 Rate Blood Pressure 155/89 136/83 (mmHg) O2 Sat by Pulse 98 90 Oximetry 07/17/18 07/17/18 07:39 07:59 Temperature 97.7 F Pulse Rate Respiratory 20 Rate Blood Pressure (mmHg) O2 Sat by Pulse Oximetry Oxygen Devices in Use Now: Nasal Cannula Appearance: Super morbidly obese male sitting up in bed, NAD Eyes: No Scleral Icterus Ears/Nose/Mouth/Throat: Mucous Membranes Moist Respiratory: Symmetrical Chest Expansion and Respiratory Effort, Clear to Auscultation - anteriorly Cardiovascular: NL Sounds; No Murmurs; No JVD, RRR, - - marked anasarca to the waist Abdominal: NL Sounds; No Tenderness; No Distention Extremities: No Clubbing, Cyanosis Skin: - - extensive skin changes to the B/L LE. Marked edema. Opened/cracked wound on L LE with purulence noted. Maggots noted wihin the wound. Skin of the lower legs is thickened and tree bark like Neurological: Alert and Oriented x 3 Result Diagrams: 07/17/18 06:27 07/17/18 06:27 Microbiology and Other Data: Microbiology 07/16/18 01:05 Nasal Screen MRSA (PCR) - Final Nasal Mrsa Not Detected Assess/Plan/Problems-Billing Mr Epperson is a 48 yo M who states he is "in between doctors currently" who is on no medications and is super morbidly obese who presented to the ER with c/o weeping from the legs and was admitted for possible decompensated CHF. - Patient Problems (1) Acute decompensated heart failure Current Visit: Yes Status: Acute Code(s): I50.9 - HEART FAILURE, UNSPECIFIED SNOMED Code(s): 48176565 Comment: Pt with acute on chronic decompensated HF with preserved EF. Pt also with evidence of RHF. Per cardiology recommendations will continue aggressive IV diuresis. Will continue lasix 60mg IV BID-pt has negative about 15L! Will give dose of acetazolamide today as he may be developing a contraction alkalosis. Heart failure is likely on the basis of his morbid obesity, MARIA ISABEL leading to pulmonary HTN and medication non-adherence. Await further recommendations from cardiology. Will be getting CTA to R/O PE given the R ventricular pressure/volume overload on echo. (2) Cellulitis and abscess of left leg Current Visit: Yes Status: Acute Code(s): L03.116 - CELLULITIS OF LEFT LOWER LIMB; L02.416 - CUTANEOUS ABSCESS OF LEFT LOWER LIMB SNOMED Code(s): 553839653 Comment: While the patient is afebrile and does not have a leukocytosis he has purulent drainage leaking from the L LE and now a small amount from the R LE. Will continue IV Abx therapy for now. No evidence of abscess on US this AM. Wounds are still very foul smelling and now there are maggots in the L LE wound. Wound care has seen the patient and recommended using silver alginate in the open wound on the L LE. (3) Hypoxia Current Visit: Yes Status: Acute Code(s): R09.02 - HYPOXEMIA SNOMED Code(s ): 590760614 Comment: Pt is now on 5L O2 with sats in the mid 90's. Likely obesity hypoventilation and CHF leading to his hypoxia. He states he has O2 at home related to a dx of MARIA ISABEL but he does not have a CPAP machine. As the patient is diuresed will monitor respiratory status including O2 sat. (4) Elevated troponin Current Visit: Yes Status: Acute Code(s): R74.8 - ABNORMAL LEVELS OF OTHER SERUM ENZYMES SNOMED Code(s): 449225883 Comment: Likley secondary to decompensated CHF. Continue therapeutic dosed lovenox until CTA back. If negative change to ASA 325mg daily per Dr. Gaitan's recommendations. (5) Morbid obesity Current Visit: Yes Status: Acute Code(s): E66.01 - MORBID (SEVERE) OBESITY DUE TO EXCESS CALORIES SNOMED Code(s): 411879436 Comment: Encourage diet and weight loss. The patient's morbid obesity is likely contributing to his infection and HF. HbA1c is quite good. (6) DVT prophylaxis Current Visit: Yes Status: Acute Code(s): RED5356 - SNOMED Code(s): 607989060 Comment: katie (7) Full code status Current Visit: Yes Status: Acute Code(s): Z78.9 - OTHER SPECIFIED HEALTH STATUS SNOMED Code(s): 585880687
[2018-07-17] MEDS: Nicotine Inhaler* 10 MG AMP INH PRN ×2 (11:59→20:50)
[2018-07-17] MEDS: Iohexol 350* (CONTRAST) 500 ML MDV IV ONE ×2 (12:49→13:06)
[2018-07-17] MEDS ORDERED: Iodixanol* (CONTRAST) 320 MG/ML 100 ML SDV IV ONE (13:10)
--- NOTE | 2018-07-17 13:25 | RAD ---
HISTORY: eval for PE no other history is provided. COMPARISONS: None TECHNIQUE: Multiple contiguous axial CT scans of the chest were obtained after the administration of nonionic intravenous contrast, timed to the pulmonary arterial phase of contrast enhancement.. Coronal and sagittal multiplanar reformations are also submitted for review. FINDINGS: Evaluation is limited by patient motion artifact. Evaluation is limited by suboptimal contrast opacification. The attenuation of the main pulmonary artery is between 200 - 250 Hounsfield units which is of borderline but diagnostic quality for the detection of pulmonary embolism. NECK AND THYROID: There is a 1.2 cm nodule of the left lower thyroid. CHEST WALL: There is no lower cervical, axillary, or supraclavicular lymphadenopathy by size criteria. HEART AND PERICARDIUM: The heart is unremarkable. AORTA AND PULMONARY VASCULATURE: There is no pulmonary arterial filling defect to suggest pulmonary embolism. There is no linear filling defect within the aorta to suggest aortic dissection. MEDIASTINUM: There are multiple lymph nodes in the prevascular space, measuring up to 0.6 cm in short axis. There is no lymphadenopathy by size criteria. ROSALBA: There is no hilar lymphadenopathy by size criteria. AIRWAY AND ESOPHAGUS: The airway is unremarkable, without endobronchial filling defect. The esophagus is grossly normal. LUNG PARENCHYMA: There is subsegmental atelectasis of the left lower lobe. PLEURA: No pleural abnormalities are noted. UPPER ABDOMEN: There is a moderate amount of ascites BONES AND SOFT TISSUES: Degenerative changes are noted. There is a chronic appearing compression deformity of T1 . 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 OTHER: None. IMPRESSION: 1. LIMITED STUDY. 2. NO PULMONARY ARTERIAL FILLING DEFECT TO SUGGEST PULMONARY EMBOLISM. 3. SUBSEGMENTAL ATELECTASIS OF LEFT LOWER LOBE. 4. LEFT THYROID NODULE. 5. ASCITES.
[2018-07-18] MEDS: Vancomycin(*) 1,000 MG in NS 0.9% 250 ML* 250 ML IVPB SCH ×2 (03:30→10:08)
[2018-07-18] MEDS: Omeprazole CAP* 20 MG PO SCH (05:04)
[2018-07-18] MEDS: Furosemide IV* 10 MG/ML 10 ML VIAL (100 MG) IV SCH (08:21)
[2018-07-18] MEDS: Cefepime 1 GM in Dextrose(*) 1 GM/50 ML BAG IV SCH (08:21)
[2018-07-18] MEDS: Docusate CAP* 100 MG PO SCH ×2 (08:25→19:55)
[2018-07-18] MEDS: Enoxaparin(*) 40 MG/0.4 ML SYR SUBCUT SCH (10:11)
[2018-07-18 10:16] LABS: ABS Basophils 0.1 10^3/ul (0-0.2); ABS Eosinophils 0.2 10^3/ul (0-0.6); ABS Lymphocytes 0.6 10^3/ul (1.0-4.8); ABS Monocytes 0.4 10^3/ul (0-0.8); ABS Neutrophils 3.8 10^3/ul (1.5-7.7); ABS Nucleated RBC 0 10^3/ul; Eosinophil % 3.9 % (0-6); Hematocrit 42 % (42-52); Hemoglobin 13.4 g/dl (14.0-18.0); Lymphocyte % 12.6 % (25-47); Mean Corpuscular HGB Conc 32 g/dl (31-36); Mean Corpuscular Hemoglobin 25 pg (27-31); Mean Corpuscular Volume 79 fL (80-94); Mean Platelet Volume 7.4 um3 (7.4-10.4); Nucleated Red Blood Cells % 0.1; Platelet Count 321 10^3/ul (150-450); Red Blood Count 5.33 10^6/ul (4.00-5.40); Red Cell Distribution Width 18 % (10.5-15); White Blood Count 5.1 10^3/ul (3.5-10.8)
[2018-07-18 10:28] LABS: EGFR Non-African American 97.9 (>60)
[2018-07-18] MEDS ORDERED: Furosemide IV* 10 MG/ML 10 ML VIAL (100 MG) IV SCH (12:00)
[2018-07-18] MEDS: metroNIDAZOLE IV 500 MG/100ML* 500 MG/100 ML BAG IVPB SCH ×2 (12:32→19:55)
--- NOTE | 2018-07-18 13:42 | CONS ---
CONSULTATION REPORT: DATE OF CONSULT: 07/18/18 REQUESTING PHYSICIAN: Dr. Morales. CONSULTING SERVICE: Infectious Disease. REASON FOR CONSULT: Infected leg wound. IMPRESSION: 1. Bilateral lower extremity edema with bilateral lower extremity large superficial wounds. He had had some debridement by the maggots that were present. He had some purulent drainage from each wound, which was apparently tailed off with diuresis and antibiotics. Likely polymicrobial, there is a foul odor, so anaerobes, I think, are strong consideration. 2. Super morbid obesity. 3. Lower extremity edema with normal left ventricular ejection fraction, question diastolic dysfunction. He does also have decreased right ventricular systolic dysfunction and dilation, question untreated obstructive sleep apnea. RECOMMENDATIONS: Stop the vancomycin and cefepime. We will start ceftriaxone 2 g a day and Flagyl 500 mg 3 times a day. HISTORY OF PRESENT ILLNESS: This is a 48-year-old man with super morbid obesity , had worsening lower extremity edema over the last few weeks and then developed wounds with foul odor emanating from both with some purulent drainage , came to the hospital on 07/15/18 because of worsening swelling and the foul odor. He does have some cat hair mixed in with the wounds. He was found to have some maggots in the wounds and has had topical wound treatment, broad- spectrum antibiotics and diuresis. Swelling was much improved, he believes the odor persists. Blood cultures here were negative as was the urine culture. He has had no fevers, chills, or sweats. There is cat hair present in the wounds; he has cats at home, he says they do not lick the wounds. There is no purulent drainage today. PAST MEDICAL HISTORY: 1. Super morbid obesity. 2. History of lower extremity swelling. 3. History of pneumonia. MEDICATIONS: 1. Tylenol. 2. Acetazolamide. 3. Docusate. 4. Enoxaparin. 5. Lasix. 6. Melatonin. 7. Omeprazole. 8. Cefepime 1 g every 12 hours. 9. Vancomycin. ALLERGIES: No known drug allergies. FAMILY HISTORY: No recurrent infections. SOCIAL HISTORY: He lives by himself other than the cats and no travel. REVIEW OF SYSTEMS: All negative except as noted in 14-point review of systems. PHYSICAL EXAM: Vital Signs: Temperature 36.6, heart rate 90, respiratory rate 20, blood pressure 156/85, oxygen saturation 95% on 5 L. In general, he is awake, not in distress. Neurologic: He is oriented x3. Follows all commands. HEENT: There is no conjunctival hemorrhage. Oropharynx without lesions. Neck is supple without mass. Heart has regular rate and rhythm without murmurs , rubs, or gallops. Lungs are clear to auscultation bilaterally. Abdomen: Soft, nontender, nondistended. There are bowel sounds present. Skin: There is no rash or splinter hemorrhage. Musculoskeletal: Bilateral lower extremity pitting edema up to the thighs. There are also venous stasis changes bilaterally. On the left anterior lower leg and right posterior lower leg, there are large superficial ulcerations. There is impressively foul odor in the entire room, which I believe emanates from those wounds. LABORATORY DATA: White blood cell count 5, hemoglobin 13, platelets 321. Creatinine 0.8. C-reactive protein on admission was 95. Please see impressions and recommendations as outlined above. Thanks for asking me to see Mr. Epperson in consultation. [id number]/[facility] #: [id number] RANDY
--- NOTE | 2018-07-18 15:36 | PN ---
Subjective Date of Service: 07/18/18 Interval History: Pt seen and examined. Meds and labs reviewed. CC: N/A ROS: Denied JIMÉNEZ/dizziness, F/C, N/V, CP, SOB, increased cough, sputum production , abd pain, diarrhea, constipation, dysuria, myalgias, arthralgias, throat pain , and new skin lesions. The rest of the 14 point ROS are unremarkable. PHYSICAL EXAM: GEN APPEARANCE: Awake, not in acute distress HEENT: NC/AT, PERRLA, moist oral mucosa, (-) throat erythema NECK: Soft, supple, (-) cervical LAD, (-)JVD HEART: S1S2 WNL, RRR, No MRG CHEST: CTA, BL, GAE, No W/R/R ABD: Soft, ND/NT, NABS 4x Q EXT: No C/C/BLLE2+, foul-smelling lower extremities SKIN: Warm to touch PSYCH: No active psychosis, hallucinations, depression, SI/HI Objective Active Medications: Acetaminophen (Tylenol Tab*) 650 mg PO Q6H PRN PRN Reason: FEVER/PAIN Aspirin (Aspirin Tab*) 325 mg PO DAILY [facility] Docusate Sodium (Colace Cap*) 200 mg PO BID [facility] Last Admin: 07/18/18 08:25 Dose: Not Given Enoxaparin Sodium (Lovenox(*)) 40 mg SUBCUT Q24H [facility] Last Admin: 07/18/18 10:11 Dose: 40 mg Furosemide (Lasix Iv*) 60 mg IV 0800,1200 [facility] Ceftriaxone Sodium 2 gm/ (Sodium Chloride) 50 mls @ 100 mls/hr IVPB Q24H [facility] Metronidazole/Sodium Chloride (Flagyl 500 Mg Ivpb*) 500 mg in 100 mls @ 100 mls /hr IVPB Q8H [facility] Last Admin: 07/18/18 12:32 Dose: 100 mls/hr Melatonin (Melatonin) 3 mg PO BEDTIME PRN; Protocol PRN Reason: Sleep Last Admin: 07/16/18 21:14 Dose: 3 mg Nicotine (Nicotine Inhaler*) 10 mg INH Q2H PRN PRN Reason: CRAVING Last Admin: 07/17/18 20:50 Dose: 10 mg Omeprazole (Prilosec Cap*) 20 mg PO DAILY@0600 [facility] Last Admin: 07/18/18 05:04 Dose: 20 mg Ondansetron HCl (Zofran Odt Tab*) 4 mg PO Q6H PRN PRN Reason: n/v Tramadol HCl (Ultram*) 50 mg PO Q6H PRN PRN Reason: PAIN Last Admin: 07/16/18 22:25 Dose: 50 mg Vital Signs - 8 hr 07/18/18 07/18/18 08:00 08:18 Temperature 97.9 F Pulse Rate 95 Respiratory 20 20 Rate Blood Pressure 156/85 (mmHg) O2 Sat by Pulse 95 Oximetry Oxygen Devices in Use Now: Nasal Cannula Result Diagrams: 07/18/18 09:55 07/18/18 09:55 Microbiology and Other Data: Microbiology 07/16/18 01:05 Nasal Screen MRSA (PCR) - Final Nasal Mrsa Not Detected Assess/Plan/Problems-Billing Mr Epperson is a 48 yo M who states he is "in between doctors currently" who is on no medications and is super morbidly obese who presented to the ER with c/o weeping from the legs and was admitted for possible decompensated CHF. - Patient Problems (1) Acute decompensated heart failure Current Visit: Yes Status: Acute Code(s): I50.9 - HEART FAILURE, UNSPECIFIED SNOMED Code(s): 31887605 Comment: -Pt with acute on chronic decompensated HF with preserved EF. -Pt improved clinically also with improving BNP -Continue with Aggressive diuresis with Lasix and acetazolamide due to contraction alkalosis seen yesterday (2) Cellulitis and abscess of left leg Current Visit: Yes Status: Acute Code(s): L03.116 - CELLULITIS OF LEFT LOWER LIMB; L02.416 - CUTANEOUS ABSCESS OF LEFT LOWER LIMB SNOMED Code(s): 513787534 Comment: -Continue Rocephin, and Metronidazole -Vancomycin and Cefepime D/Cd and appreciate Dr. Marcial help (3) Hypoxia Current Visit: Yes Status: Acute Code(s): R09.02 - HYPOXEMIA SNOMED Code(s ): 340328011 Comment: - Likely obesity hypoventilation and CHF leading to his hypoxia. He states he has O2 at home related to a dx of MARIA ISABEL but he does not have a CPAP machine. As the patient is diuresed will monitor respiratory status including O2 sat. -Will continue diuresis as discussed and will obtain o/n oximetry study and refer to Dr. Mancuso if MARIA ISABEL is suggestive (4) Elevated troponin Current Visit: Yes Status: Acute Code(s): R74.8 - ABNORMAL LEVELS OF OTHER SERUM ENZYMES SNOMED Code(s): 652277226 Comment: -Likley secondary to decompensated CHF. -CTA of chest negative for PE -Placed on ASA as per Dr. Morales and Shefali discussion (5) Morbid obesity Current Visit: Yes Status: Acute Code(s): E66.01 - MORBID (SEVERE) OBESITY DUE TO EXCESS CALORIES SNOMED Code(s): 267511363 Comment: Encourage diet and weight loss. The patient's morbid obesity is likely contributing to his infection and HF. HbA1c is quite good. (6) DVT prophylaxis Current Visit: Yes Status: Acute Code(s): FES9800 - SNOMED Code(s): 154427549 Comment: katie Status and Disposition: -Will ask wound care for possible whirlpool consult -As above
[2018-07-18] MEDS: cefTRIAXone(*) 2 GM in NS 0.9% 50 ML* 50 ML IVPB SCH (16:10)
[2018-07-19] MEDS: metroNIDAZOLE IV 500 MG/100ML* 500 MG/100 ML BAG IVPB SCH ×3 (04:12→21:22)
[2018-07-19] MEDS: Omeprazole CAP* 20 MG PO SCH (05:28)
[2018-07-19] MEDS ORDERED: Vancomycin Trough Check NOTE FOLLOW UP ONE (08:30)
[2018-07-19] MEDS: Docusate CAP* 100 MG PO SCH ×2 (09:09→21:26)
[2018-07-19] MEDS: Furosemide IV* 10 MG/ML 10 ML VIAL (100 MG) IV SCH ×2 (09:09→12:50)
[2018-07-19] MEDS: Enoxaparin(*) 40 MG/0.4 ML SYR SUBCUT SCH (09:10)
[2018-07-19] MEDS: Aspirin TAB* 325 MG PO SCH (09:10)
[2018-07-19 09:36] LABS: ABS Basophils 0 10^3/ul (0-0.2); ABS Eosinophils 0.2 10^3/ul (0-0.6); ABS Lymphocytes 0.6 10^3/ul (1.0-4.8); ABS Monocytes 0.4 10^3/ul (0-0.8); ABS Neutrophils 3.4 10^3/ul (1.5-7.7); ABS Nucleated RBC 0 10^3/ul; Eosinophil % 5.2 % (0-6); Hematocrit 43 % (42-52); Hemoglobin 13.5 g/dl (14.0-18.0); Lymphocyte % 12.9 % (25-47); Mean Corpuscular HGB Conc 32 g/dl (31-36); Mean Corpuscular Hemoglobin 25 pg (27-31); Mean Corpuscular Volume 79 fL (80-94); Mean Platelet Volume 7.1 um3 (7.4-10.4); Nucleated Red Blood Cells % 0.1; Platelet Count 281 10^3/ul (150-450); Red Blood Count 5.38 10^6/ul (4.00-5.40); Red Cell Distribution Width 18 % (10.5-15); White Blood Count 4.6 10^3/ul (3.5-10.8)
[2018-07-19] MEDS: cefTRIAXone(*) 2 GM in NS 0.9% 50 ML* 50 ML IVPB SCH (16:52)
--- NOTE | 2018-07-19 18:14 | PN ---
Subjective Date of Service: 07/19/18 Interval History: Pt seen and examined. Meds and labs reviewed. CC: N/A ROS: Denied JIMÉNEZ/dizziness, F/C, N/V, CP, SOB, increased cough, sputum production , abd pain, diarrhea, constipation, dysuria, myalgias, arthralgias, throat pain , and new skin lesions. The rest of the 14 point ROS are unremarkable. PHYSICAL EXAM: GEN APPEARANCE: Awake, not in acute distress HEENT: NC/AT, PERRLA, moist oral mucosa, (-) throat erythema NECK: Soft, supple, (-) cervical LAD, (-)JVD HEART: S1S2 WNL, RRR, No MRG CHEST: CTA, BL, GAE, No W/R/R ABD: Soft, ND/NT, NABS 4x Q EXT: No C/C/BLLE2+, foul-smelling lower extremities SKIN: Warm to touch PSYCH: No active psychosis, hallucinations, depression, SI/HI Objective Active Medications: Acetaminophen (Tylenol Tab*) 650 mg PO Q6H PRN PRN Reason: FEVER/PAIN Aspirin (Aspirin Tab*) 325 mg PO DAILY [facility] Last Admin: 07/19/18 09:10 Dose: 325 mg Docusate Sodium (Colace Cap*) 200 mg PO BID [facility] Last Admin: 07/19/18 09:09 Dose: 200 mg Enoxaparin Sodium (Lovenox(*)) 40 mg SUBCUT Q24H [facility] Last Admin: 07/19/18 09:10 Dose: 40 mg Furosemide (Lasix Iv*) 60 mg IV 0800,1200 [facility] Last Admin: 07/19/18 12:50 Dose: 60 mg Ceftriaxone Sodium 2 gm/ (Sodium Chloride) 50 mls @ 100 mls/hr IVPB Q24H [facility] Last Admin: 07/19/18 16:52 Dose: 100 mls/hr Metronidazole/Sodium Chloride (Flagyl 500 Mg Ivpb*) 500 mg in 100 mls @ 100 mls /hr IVPB Q8H [facility] Last Admin: 07/19/18 12:51 Dose: 100 mls/hr Melatonin (Melatonin) 3 mg PO BEDTIME PRN; Protocol PRN Reason: Sleep Last Admin: 07/16/18 21:14 Dose: 3 mg Nicotine (Nicotine Inhaler*) 10 mg INH Q2H PRN PRN Reason: CRAVING Last Admin: 07/17/18 20:50 Dose: 10 mg Omeprazole (Prilosec Cap*) 20 mg PO DAILY@0600 [facility] Last Admin: 07/19/18 05:28 Dose: 20 mg Ondansetron HCl (Zofran Odt Tab*) 4 mg PO Q6H PRN PRN Reason: n/v Tramadol HCl (Ultram*) 50 mg PO Q6H PRN PRN Reason: PAIN Last Admin: 07/16/18 22:25 Dose: 50 mg Vital Signs - 8 hr 07/19/18 07/19/18 07/19/18 11:35 12:40 13:06 Temperature 98.1 F 96.7 F Pulse Rate 75 84 Respiratory 18 16 Rate Blood Pressure 132/70 143/79 (mmHg) O2 Sat by Pulse 95 91 97 Oximetry 07/19/18 14:13 Temperature 97.8 F Pulse Rate 88 Respiratory 18 Rate Blood Pressure 127/67 (mmHg) O2 Sat by Pulse 92 Oximetry Oxygen Devices in Use Now: Nasal Cannula Result Diagrams: 07/19/18 09:20 07/19/18 09:20 Microbiology and Other Data: Microbiology 07/16/18 01:05 Nasal Screen MRSA (PCR) - Final Nasal Mrsa Not Detected Assess/Plan/Problems-Billing Mr Epperson is a 48 yo M who states he is "in between doctors currently" who is on no medications and is super morbidly obese who presented to the ER with c/o weeping from the legs and was admitted for possible decompensated CHF. - Patient Problems (1) Acute decompensated heart failure Current Visit: Yes Status: Acute Code(s): I50.9 - HEART FAILURE, UNSPECIFIED SNOMED Code(s): 56868687 Comment: -Pt with acute on chronic decompensated HF with preserved EF. -Pt improved clinically also with improving BNP -Continue with Aggressive diuresis with Lasix and acetazolamide due to contraction alkalosis seen yesterday (2) Cellulitis and abscess of left leg Current Visit: Yes Status: Acute Code(s): L03.116 - CELLULITIS OF LEFT LOWER LIMB; L02.416 - CUTANEOUS ABSCESS OF LEFT LOWER LIMB SNOMED Code(s): 617019803 Comment: -Continue Rocephin, and Metronidazole--- will await any further input from Dr. Torres on abx on D/C and duration -Vancomycin and Cefepime D/Cd and appreciate Dr. Marcial help (3) Hypoxia Current Visit: Yes Status: Acute Code(s): R09.02 - HYPOXEMIA SNOMED Code(s ): 967696166 Comment: -O/N oximetry shows 11 desaturation events over 3 mins---will refer to Dr. Mancuso for outpt sleep study - Likely obesity hypoventilation and CHF leading to his hypoxia. He states he has O2 at home related to a dx of MARIA ISABEL but he does not have a CPAP machine. As the patient is diuresed will monitor respiratory status including O2 sat. (4) Elevated troponin Current Visit: Yes Status: Acute Code(s): R74.8 - ABNORMAL LEVELS OF OTHER SERUM ENZYMES SNOMED Code(s): 296803813 Comment: -Likley secondary to decompensated CHF. -CTA of chest negative for PE -Placed on ASA as per Dr. Morales and Shefali discussion (5) Morbid obesity Current Visit: Yes Status: Acute Code(s): E66.01 - MORBID (SEVERE) OBESITY DUE TO EXCESS CALORIES SNOMED Code(s): 476403218 Comment: Encourage diet and weight loss. The patient's morbid obesity is likely contributing to his infection and HF. HbA1c is quite good. (6) DVT prophylaxis Current Visit: Yes Status: Acute Code(s): [id number] - SNOMED Code(s): 489388418 Comment: [email or web address] Status and Disposition: -Appreciate PT eval -For ambulatory sats and possible D/C in AM
[2018-07-20] MEDS: metroNIDAZOLE IV 500 MG/100ML* 500 MG/100 ML BAG IVPB SCH ×3 (04:08→20:32)
[2018-07-20] MEDS: Omeprazole CAP* 20 MG PO SCH (05:14)
[2018-07-20] MEDS: Enoxaparin(*) 40 MG/0.4 ML SYR SUBCUT SCH (09:03)
[2018-07-20] MEDS: Furosemide IV* 10 MG/ML 10 ML VIAL (100 MG) IV SCH ×2 (09:03→11:57)
[2018-07-20] MEDS: Docusate CAP* 100 MG PO SCH ×2 (09:03→20:32)
[2018-07-20] MEDS: Aspirin TAB* 325 MG PO SCH (09:03)
[2018-07-20] MEDS: cefTRIAXone(*) 2 GM in NS 0.9% 50 ML* 50 ML IVPB SCH (16:25)
--- NOTE | 2018-07-20 20:18 | PN ---
Subjective Date of Service: 07/20/18 Interval History: Pt seen and examined. Meds and labs reviewed. CC: N/A ROS: Denied JIMÉNEZ/dizziness, F/C, N/V, CP, SOB, increased cough, sputum production , abd pain, diarrhea, constipation, dysuria, myalgias, arthralgias, throat pain , and new skin lesions. The rest of the 14 point ROS are unremarkable. PHYSICAL EXAM: GEN APPEARANCE: Awake, not in acute distress HEENT: NC/AT, PERRLA, moist oral mucosa, (-) throat erythema NECK: Soft, supple, (-) cervical LAD, (-)JVD HEART: S1S2 WNL, RRR, No MRG CHEST: CTA, BL, GAE, No W/R/R ABD: Soft, ND/NT, NABS 4x Q EXT: No C/C/BLLE2+, foul-smelling lower extremities SKIN: Warm to touch PSYCH: No active psychosis, hallucinations, depression, SI/HI Objective Active Medications: Acetaminophen (Tylenol Tab*) 650 mg PO Q6H PRN PRN Reason: FEVER/PAIN Aspirin (Aspirin Tab*) 325 mg PO DAILY [facility] Last Admin: 07/20/18 09:03 Dose: 325 mg Docusate Sodium (Colace Cap*) 200 mg PO BID [facility] Last Admin: 07/20/18 09:03 Dose: 200 mg Enoxaparin Sodium (Lovenox(*)) 40 mg SUBCUT Q24H [facility] Last Admin: 07/20/18 09:03 Dose: 40 mg Furosemide (Lasix Iv*) 60 mg IV 0800,1200 [facility] Last Admin: 07/20/18 11:57 Dose: 60 mg Ceftriaxone Sodium 2 gm/ (Sodium Chloride) 50 mls @ 100 mls/hr IVPB Q24H [facility] Last Admin: 07/20/18 16:25 Dose: 100 mls/hr Metronidazole/Sodium Chloride (Flagyl 500 Mg Ivpb*) 500 mg in 100 mls @ 100 mls /hr IVPB Q8H [facility] Last Admin: 07/20/18 11:56 Dose: 100 mls/hr Melatonin (Melatonin) 3 mg PO BEDTIME PRN; Protocol PRN Reason: Sleep Last Admin: 07/16/18 21:14 Dose: 3 mg Nicotine (Nicotine Inhaler*) 10 mg INH Q2H PRN PRN Reason: CRAVING Last Admin: 07/17/18 20:50 Dose: 10 mg Omeprazole (Prilosec Cap*) 20 mg PO DAILY@0600 [facility] Last Admin: 07/20/18 05:14 Dose: 20 mg Ondansetron HCl (Zofran Odt Tab*) 4 mg PO Q6H PRN PRN Reason: n/v Tramadol HCl (Ultram*) 50 mg PO Q6H PRN PRN Reason: PAIN Last Admin: 07/16/18 22:25 Dose: 50 mg Vital Signs - 8 hr 07/20/18 12:24 O2 Sat by Pulse 97 Oximetry Oxygen Devices in Use Now: Nasal Cannula Result Diagrams: 07/19/18 09:20 07/19/18 09:20 Microbiology and Other Data: Microbiology 07/16/18 01:05 Nasal Screen MRSA (PCR) - Final Nasal Mrsa Not Detected Assess/Plan/Problems-Billing Mr Epperson is a 48 yo M who states he is "in between doctors currently" who is on no medications and is super morbidly obese who presented to the ER with c/o weeping from the legs and was admitted for possible decompensated CHF. - Patient Problems (1) Acute decompensated heart failure Current Visit: Yes Status: Acute Code(s): I50.9 - HEART FAILURE, UNSPECIFIED SNOMED Code(s): 16562018 Comment: -Pt with acute on chronic decompensated HF with preserved EF. -Pt improved clinically also with continued improvement of BNP -Continue with Aggressive diuresis with Lasix and acetazolamide due to contraction alkalosis (2) Cellulitis and abscess of left leg Current Visit: Yes Status: Acute Code(s): L03.116 - CELLULITIS OF LEFT LOWER LIMB; L02.416 - CUTANEOUS ABSCESS OF LEFT LOWER LIMB SNOMED Code(s): 976110569 Comment: -Continue Rocephin, and Metronidazole--- will await any further input from Dr. Torres on abx on D/C and duration -Vancomycin and Cefepime D/Cd and appreciate Dr. Marcial help (3) Hypoxia Current Visit: Yes Status: Acute Code(s): R09.02 - HYPOXEMIA SNOMED Code(s ): 363986801 Comment: -O/N oximetry shows 11 desaturation events over 3 mins---will refer to Dr. Mancuso for outpt sleep study - Likely obesity hypoventilation and CHF leading to his hypoxia. He states he has O2 at home related to a dx of MARIA ISABEL but he does not have a CPAP machine. As the patient is diuresed will monitor respiratory status including O2 sat. (4) Elevated troponin Current Visit: Yes Status: Acute Code(s): R74.8 - ABNORMAL LEVELS OF OTHER SERUM ENZYMES SNOMED Code(s): 322530232 Comment: -Likley secondary to decompensated CHF. -CTA of chest negative for PE -Placed on ASA as per Dr. Morales and Shefali discussion (5) Morbid obesity Current Visit: Yes Status: Acute Code(s): E66.01 - MORBID (SEVERE) OBESITY DUE TO EXCESS CALORIES SNOMED Code(s): 905334645 Comment: Encourage diet and weight loss. The patient's morbid obesity is likely contributing to his infection and HF. HbA1c is quite good. (6) DVT prophylaxis Current Visit: Yes Status: Acute Code(s): FYV8360 - SNOMED Code(s): 570516430 Comment: katie Status and Disposition: -Given home is not a safe environment for D/C due to bed bugs, pt is pending placement
[2018-07-20] MEDS: Nicotine Inhaler* 10 MG AMP INH PRN (20:32)
[2018-07-20] MEDS: Melatonin 3 MG TAB PO PRN (20:32)
[2018-07-21] MEDS: Omeprazole CAP* 20 MG PO SCH (05:27)
[2018-07-21] MEDS: metroNIDAZOLE IV 500 MG/100ML* 500 MG/100 ML BAG IVPB SCH ×3 (05:27→20:07)
[2018-07-21] MEDS: Docusate CAP* 100 MG PO SCH ×2 (09:15→20:08)
[2018-07-21] MEDS: Aspirin TAB* 325 MG PO SCH (09:16)
[2018-07-21] MEDS: Furosemide IV* 10 MG/ML 10 ML VIAL (100 MG) IV SCH ×2 (09:16→11:52)
[2018-07-21] MEDS: Enoxaparin(*) 40 MG/0.4 ML SYR SUBCUT SCH (09:16)
[2018-07-21] MEDS: cefTRIAXone(*) 2 GM in NS 0.9% 50 ML* 50 ML IVPB SCH (16:04)
--- NOTE | 2018-07-21 17:23 | PN ---
Subjective Date of Service: 07/21/18 Interval History: Pt seen and examined. Meds and labs reviewed. Pts family at bedside, whom I updated. Pt and family satisfied with inpatient care. CC: N/A ROS: Denied JIMÉNEZ/dizziness, F/C, N/V, CP, SOB, increased cough, sputum production , abd pain, diarrhea, constipation, dysuria, myalgias, arthralgias, throat pain , and new skin lesions. The rest of the 14 point ROS are unremarkable. PHYSICAL EXAM: GEN APPEARANCE: Awake, not in acute distress HEENT: NC/AT, PERRLA, moist oral mucosa, (-) throat erythema NECK: Soft, supple, (-) cervical LAD, (-)JVD HEART: S1S2 WNL, RRR, No MRG CHEST: CTA, BL, GAE, No W/R/R ABD: Soft, ND/NT, NABS 4x Q EXT: No C/C/BLLE2+, foul-smelling lower extremities SKIN: Warm to touch PSYCH: No active psychosis, hallucinations, depression, SI/HI Objective Active Medications: Acetaminophen (Tylenol Tab*) 650 mg PO Q6H PRN PRN Reason: FEVER/PAIN Aspirin (Aspirin Tab*) 325 mg PO DAILY [facility] Last Admin: 07/21/18 09:16 Dose: 325 mg Docusate Sodium (Colace Cap*) 200 mg PO BID [facility] Last Admin: 07/21/18 09:15 Dose: 200 mg Enoxaparin Sodium (Lovenox(*)) 40 mg SUBCUT Q24H [facility] Last Admin: 07/21/18 09:16 Dose: 40 mg Furosemide (Lasix Iv*) 60 mg IV 0800,1200 [facility] Last Admin: 07/21/18 11:52 Dose: 60 mg Ceftriaxone Sodium 2 gm/ (Sodium Chloride) 50 mls @ 100 mls/hr IVPB Q24H [facility] Last Admin: 07/21/18 16:04 Dose: 100 mls/hr Metronidazole/Sodium Chloride (Flagyl 500 Mg Ivpb*) 500 mg in 100 mls @ 100 mls /hr IVPB Q8H [facility] Last Admin: 07/21/18 11:52 Dose: 100 mls/hr Melatonin (Melatonin) 3 mg PO BEDTIME PRN; Protocol PRN Reason: Sleep Last Admin: 07/20/18 20:32 Dose: 3 mg Nicotine (Nicotine Inhaler*) 10 mg INH Q2H PRN PRN Reason: CRAVING Last Admin: 07/20/18 20:32 Dose: 10 mg Omeprazole (Prilosec Cap*) 20 mg PO DAILY@0600 [facility] Last Admin: 07/21/18 05:27 Dose: Not Given Ondansetron HCl (Zofran Odt Tab*) 4 mg PO Q6H PRN PRN Reason: n/v Tramadol HCl (Ultram*) 50 mg PO Q6H PRN PRN Reason: PAIN Last Admin: 07/16/18 22:25 Dose: 50 mg Vital Signs - 8 hr 07/21/18 11:11 Temperature 97.6 F Pulse Rate 75 Respiratory 18 Rate Blood Pressure 127/72 (mmHg) O2 Sat by Pulse 95 Oximetry Oxygen Devices in Use Now: Nasal Cannula Result Diagrams: 07/19/18 09:20 07/19/18 09:20 Microbiology and Other Data: Microbiology 07/16/18 01:05 Nasal Screen MRSA (PCR) - Final Nasal Mrsa Not Detected Assess/Plan/Problems-Billing Mr Epperson is a 48 yo M who states he is "in between doctors currently" who is on no medications and is super morbidly obese who presented to the ER with c/o weeping from the legs and was admitted for possible decompensated CHF. - Patient Problems (1) Acute decompensated heart failure Current Visit: Yes Status: Acute Code(s): I50.9 - HEART FAILURE, UNSPECIFIED SNOMED Code(s): 91769714 Comment: -Pt with acute on chronic decompensated HF with preserved EF. -Pt improved clinically also with continued improvement of BNP -Continue with Aggressive diuresis with Lasix (2) Cellulitis and abscess of left leg Current Visit: Yes Status: Acute Code(s): L03.116 - CELLULITIS OF LEFT LOWER LIMB; L02.416 - CUTANEOUS ABSCESS OF LEFT LOWER LIMB SNOMED Code(s): 303015411 Comment: -Continue Rocephin, and Metronidazole--- will await any further input from Dr. Torres on abx on D/C and duration; will touch base on Monday -Vancomycin and Cefepime D/Cd and appreciate Dr. Marcial help (3) Hypoxia Current Visit: Yes Status: Acute Code(s): R09.02 - HYPOXEMIA SNOMED Code(s ): 268281547 Comment: -O/N oximetry shows 11 desaturation events over 3 mins---will refer to Dr. Mancuso for outpt sleep study - Likely obesity hypoventilation and CHF leading to his hypoxia. He states he has O2 at home related to a dx of MARIA ISABEL but he does not have a CPAP machine. As the patient is diuresed will monitor respiratory status including O2 sat. (4) Elevated troponin Current Visit: Yes Status: Acute Code(s): R74.8 - ABNORMAL LEVELS OF OTHER SERUM ENZYMES SNOMED Code(s): 143472113 Comment: -Likley secondary to decompensated CHF. -CTA of chest negative for PE -Placed on ASA as per Dr. Morales and Shefali discussion (5) Morbid obesity Current Visit: Yes Status: Acute Code(s): E66.01 - MORBID (SEVERE) OBESITY DUE TO EXCESS CALORIES SNOMED Code(s): 687313931 Comment: Encourage diet and weight loss. The patient's morbid obesity is likely contributing to his infection and HF. HbA1c is quite good. (6) DVT prophylaxis Current Visit: Yes Status: Acute Code(s): ZYV6912 - SNOMED Code(s): 195515636 Comment: lovenox Status and Disposition: -Given home is not a safe environment for D/C due to bed bugs, pt is pending placement
[2018-07-22] MEDS: metroNIDAZOLE IV 500 MG/100ML* 500 MG/100 ML BAG IVPB SCH ×3 (04:06→20:53)
[2018-07-22] MEDS: Omeprazole CAP* 20 MG PO SCH (05:04)
[2018-07-22 06:22] LABS: Hematocrit 44 % (42-52); Hemoglobin 14.5 g/dl (14.0-18.0); Mean Corpuscular HGB Conc 33 g/dl (31-36); Mean Corpuscular Hemoglobin 26 pg (27-31); Mean Corpuscular Volume 78 fL (80-94); Mean Platelet Volume 7.7 um3 (7.4-10.4); Platelet Count 295 10^3/ul (150-450); Red Blood Count 5.62 10^6/ul (4.00-5.40); Red Cell Distribution Width 18 % (10.5-15)
[2018-07-22 06:42] LABS: EGFR Non-African American 106.7 (>60)
[2018-07-22] MEDS: Aspirin TAB* 325 MG PO SCH (09:07)
[2018-07-22] MEDS: Docusate CAP* 100 MG PO SCH ×2 (09:08→21:43)
[2018-07-22] MEDS: Enoxaparin(*) 40 MG/0.4 ML SYR SUBCUT SCH (09:08)
[2018-07-22] MEDS: Furosemide IV* 10 MG/ML 10 ML VIAL (100 MG) IV SCH ×2 (09:08→11:57)
--- NOTE | 2018-07-22 14:15 | PN ---
Subjective Date of Service: 07/22/18 Interval History: Pt seen and examined. Meds and labs reviewed CC: N/A ROS: Denied JIMÉNEZ/dizziness, F/C, N/V, CP, SOB, increased cough, sputum production , abd pain, diarrhea, constipation, dysuria, myalgias, arthralgias, throat pain , and new skin lesions. The rest of the 14 point ROS are unremarkable. PHYSICAL EXAM: GEN APPEARANCE: Awake, not in acute distress HEENT: NC/AT, PERRLA, moist oral mucosa, (-) throat erythema NECK: Soft, supple, (-) cervical LAD, (-)JVD HEART: S1S2 WNL, RRR, No MRG CHEST: CTA, BL, GAE, No W/R/R ABD: Soft, ND/NT, NABS 4x Q EXT: No C/C/BLLE2+, foul-smelling lower extremities, scrotal and BLLE edema improving SKIN: Warm to touch PSYCH: No active psychosis, hallucinations, depression, SI/HI Objective Active Medications: Acetaminophen (Tylenol Tab*) 650 mg PO Q6H PRN PRN Reason: FEVER/PAIN Aspirin (Aspirin Tab*) 325 mg PO DAILY [facility] Last Admin: 07/22/18 09:07 Dose: 325 mg Docusate Sodium (Colace Cap*) 200 mg PO BID [facility] Last Admin: 07/22/18 09:08 Dose: Not Given Enoxaparin Sodium (Lovenox(*)) 40 mg SUBCUT Q24H [facility] Last Admin: 07/22/18 09:08 Dose: 40 mg Furosemide (Lasix Iv*) 60 mg IV 0800,1200 [facility] Last Admin: 07/22/18 11:57 Dose: 60 mg Ceftriaxone Sodium 2 gm/ (Sodium Chloride) 50 mls @ 100 mls/hr IVPB Q24H [facility] Last Admin: 07/21/18 16:04 Dose: 100 mls/hr Metronidazole/Sodium Chloride (Flagyl 500 Mg Ivpb*) 500 mg in 100 mls @ 100 mls /hr IVPB Q8H [facility] Last Admin: 07/22/18 11:57 Dose: 100 mls/hr Melatonin (Melatonin) 3 mg PO BEDTIME PRN; Protocol PRN Reason: Sleep Last Admin: 07/20/18 20:32 Dose: 3 mg Nicotine (Nicotine Inhaler*) 10 mg INH Q2H PRN PRN Reason: CRAVING Last Admin: 07/20/18 20:32 Dose: 10 mg Omeprazole (Prilosec Cap*) 20 mg PO DAILY@0600 [facility] Last Admin: 07/22/18 05:04 Dose: 20 mg Ondansetron HCl (Zofran Odt Tab*) 4 mg PO Q6H PRN PRN Reason: n/v Tramadol HCl (Ultram*) 50 mg PO Q6H PRN PRN Reason: PAIN Last Admin: 07/16/18 22:25 Dose: 50 mg Vital Signs - 8 hr 07/22/18 07/22/18 07/22/18 07:54 09:20 11:32 Temperature 97.7 F 97.6 F Pulse Rate 50 86 Respiratory 18 18 20 Rate Blood Pressure 137/65 131/73 (mmHg) O2 Sat by Pulse 94 96 Oximetry Oxygen Devices in Use Now: None Result Diagrams: 07/22/18 05:44 07/22/18 05:44 Microbiology and Other Data: Microbiology 07/16/18 01:05 Nasal Screen MRSA (PCR) - Final Nasal Mrsa Not Detected Assess/Plan/Problems-Billing Mr Epperson is a 48 yo M who states he is "in between doctors currently" who is on no medications and is super morbidly obese who presented to the ER with c/o weeping from the legs and was admitted for possible decompensated CHF. - Patient Problems (1) Acute decompensated heart failure Current Visit: Yes Status: Acute Code(s): I50.9 - HEART FAILURE, UNSPECIFIED SNOMED Code(s): 74804693 Comment: -Pt with acute on chronic decompensated HF with preserved EF. -Pt improved clinically also with continued improvement of BNP -Continue with Aggressive diuresis with Lasix -On D/C will convert to Torsemide 60 mg daily with low dose Metolazone and low salt diet (1-1.5 g Sodium per day) (2) Cellulitis and abscess of left leg Current Visit: Yes Status: Acute Code(s): L03.116 - CELLULITIS OF LEFT LOWER LIMB; L02.416 - CUTANEOUS ABSCESS OF LEFT LOWER LIMB SNOMED Code(s): 796981592 Comment: -Continue Rocephin, and Metronidazole--- will await any further input from Dr. Torres on abx on D/C and duration; will touch base on Monday -Vancomycin and Cefepime D/Cd and appreciate Dr. Marcial help (3) Hypoxia Current Visit: Yes Status: Acute Code(s): R09.02 - HYPOXEMIA SNOMED Code(s ): 205901374 Comment: -O/N oximetry shows 11 desaturation events over 3 mins---will refer to Dr. Mancuso for outpt sleep study - Likely obesity hypoventilation and CHF leading to his hypoxia. He states he has O2 at home related to a dx of MARIA ISABEL but he does not have a CPAP machine. As the patient is diuresed will monitor respiratory status including O2 sat. (4) Elevated troponin Current Visit: Yes Status: Acute Code(s): R74.8 - ABNORMAL LEVELS OF OTHER SERUM ENZYMES SNOMED Code(s): 061249075 Comment: -Likley secondary to decompensated CHF. -CTA of chest negative for PE -Placed on ASA as per Dr. Morales and Shefali discussion (5) Morbid obesity Current Visit: Yes Status: Acute Code(s): E66.01 - MORBID (SEVERE) OBESITY DUE TO EXCESS CALORIES SNOMED Code(s): 604584886 Comment: Encourage diet and weight loss. The patient's morbid obesity is likely contributing to his infection and HF. HbA1c is quite good. (6) DVT prophylaxis Current Visit: Yes Status: Acute Code(s): BFT0756 - SNOMED Code(s): 568094048 Comment: lovenox Status and Disposition: -Given home is not a safe environment for D/C due to bed bugs, pt is pending placement
[2018-07-22] MEDS: cefTRIAXone(*) 2 GM in NS 0.9% 50 ML* 50 ML IVPB SCH (17:00)
[2018-07-23] MEDS: metroNIDAZOLE IV 500 MG/100ML* 500 MG/100 ML BAG IVPB SCH (04:56)
[2018-07-23 06:51] LABS: ABS Neutrophils 2.8 10^3/ul (1.5-7.7); Hematocrit 46 % (42-52); Mean Corpuscular HGB Conc 32 g/dl (31-36); Mean Corpuscular Hemoglobin 26 pg (27-31); Mean Corpuscular Volume 79 fL (80-94); Mean Platelet Volume 7.7 um3 (7.4-10.4); Platelet Count 281 10^3/ul (150-450); Red Blood Count 5.88 10^6/ul (4.00-5.40); Red Cell Distribution Width 18 % (10.5-15); White Blood Count 5.2 10^3/ul (3.5-10.8)
[2018-07-23 06:52] LABS: ABS Basophils 0.1 10^3/ul (0-0.2); ABS Eosinophils 0.2 10^3/ul (0-0.6); ABS Lymphocytes 1.4 10^3/ul (1.0-4.8); ABS Monocytes 0.7 10^3/ul (0-0.8); ABS Nucleated RBC 0 10^3/ul; Eosinophil % 4.5 % (0-6); Lymphocyte % 27.1 % (25-47); Nucleated Red Blood Cells % 0
[2018-07-23] MEDS: Omeprazole CAP* 20 MG PO SCH (06:56)
[2018-07-23 07:09] LABS: EGFR Non-African American 92.8 (>60)
[2018-07-23] MEDS: Furosemide IV* 10 MG/ML 10 ML VIAL (100 MG) IV SCH ×2 (08:27→12:56)
[2018-07-23] MEDS: Docusate CAP* 100 MG PO SCH ×2 (08:28→20:39)
[2018-07-23] MEDS: Enoxaparin(*) 40 MG/0.4 ML SYR SUBCUT SCH (08:28)
[2018-07-23] MEDS: Aspirin TAB* 325 MG PO SCH (08:28)
--- NOTE | 2018-07-23 09:33 | PN ---
Progress Note - Progress Note Date of Service: 07/23/18 SOAP: Subjective: CC: wound infection HPI: 48 year old man with bilateral lower extremity edema with BL LE wounds and cellulitis. Legs less swollen and pain is improved. No fever, rash, or diarrhea. Objective: Vital Signs Temp 36.9 C 07/23/18 07:40 Pulse 78 07/23/18 08:26 Resp 18 07/23/18 08:33 BP 124/57 07/23/18 07:34 Pulse Ox 93 07/23/18 07:34 Intake & Output 07/22/18 07/23/18 07/23/18 18:59 06:59 18:59 Intake Total 590 440 Output Total 350 Balance 590 90 Weight 360 lb 4.8 oz Intake: IV Fluids 290 ABX - FLAGYL 200 NS (0.9%) 90 IVPB 150 ABX - CEFTRIAXONE 50 ABX - FLAGYL 100 Oral 590 0 Output: Urine 350 Other: Estimated Void Medium Medium # Bowel Movements 1 0 Estimated Stool Amount Medium # Voids 3 Gen:awake, no distress HEENT: no thrush Heart:RRR no murmur Lungs:CTA BL Abd:+BS NTND soft Skin: no rash MSK:BL LE edema, wounds wrapped Laboratory Results - last 24 hr 07/23/18 07/23/18 07/23/18 06:40 06:40 06:40 WBC 5.2 RBC 5.88 H Hgb 15.0 Hct 46 MCV 79 L MCH 26 L MCHC 32 RDW 18 H Plt Count 281 MPV 7.7 Neut % (Auto) 53.5 Lymph % (Auto) 27.1 [place]berry % (Auto) 13.6 H Eos % (Auto) 4.5 Baso % (Auto) 1.3 Absolute Neuts (auto) 2.8 Absolute Lymphs (auto) 1.4 Absolute Monos (auto) 0.7 Absolute Eos (auto) 0.2 Absolute Basos (auto) 0.1 Absolute Nucleated RBC 0 Nucleated RBC % 0 Sodium 140 Potassium 3.5 Chloride 102 Carbon Dioxide 32 Anion Gap 6 BUN 24 Creatinine 0.88 Est GFR ( Amer) 112.3 Est GFR (Non-Af Amer) 92.8 BUN/Creatinine Ratio 27.3 H Glucose 102 H Calcium 9.0 Phosphorus 4.6 Magnesium 2.1 B-Natriuretic Peptide 192 H Assessment: 1. BL LE wounds with wound infection and cellulitis, polymicrobial, improving 2. acute heart failure 3. morbid obesity Plan: 1. stop iv abx, will change to augmentin, today is abx day 06/22. Wound care and diuresis.
[2018-07-23] MEDS: Nicotine Inhaler* 10 MG AMP INH PRN (15:43)
--- NOTE | 2018-07-23 17:48 | PN ---
Subjective Date of Service: 07/23/18 Interval History: Pt seen and examined. Meds and labs reviewed CC: N/A ROS: Denied JIMÉNEZ/dizziness, F/C, N/V, CP, SOB, increased cough, sputum production , abd pain, diarrhea, constipation, dysuria, myalgias, arthralgias, throat pain , and new skin lesions. The rest of the 14 point ROS are unremarkable. PHYSICAL EXAM: GEN APPEARANCE: Awake, not in acute distress HEENT: NC/AT, PERRLA, moist oral mucosa, (-) throat erythema NECK: Soft, supple, (-) cervical LAD, (-)JVD HEART: S1S2 WNL, RRR, No MRG CHEST: CTA, BL, GAE, No W/R/R ABD: Soft, ND/NT, NABS 4x Q EXT: No C/C/BLLE2+, foul-smelling lower extremities, scrotal and BLLE edema improving SKIN: Warm to touch PSYCH: No active psychosis, hallucinations, depression, SI/HI Objective Active Medications: Acetaminophen (Tylenol Tab*) 650 mg PO Q6H PRN PRN Reason: FEVER/PAIN Amoxicillin/Clavulanate Potassium (Augmentin Tab*) 500 mg PO BID [facility] Aspirin (Aspirin Tab*) 325 mg PO DAILY [facility] Last Admin: 07/23/18 08:28 Dose: 325 mg Docusate Sodium (Colace Cap*) 200 mg PO BID [facility] Last Admin: 07/23/18 08:28 Dose: 200 mg Enoxaparin Sodium (Lovenox(*)) 40 mg SUBCUT Q24H [facility] Last Admin: 07/23/18 08:28 Dose: 40 mg Furosemide (Lasix Iv*) 60 mg IV 0800,1200 [facility] Last Admin: 07/23/18 12:56 Dose: 60 mg Melatonin (Melatonin) 3 mg PO BEDTIME PRN; Protocol PRN Reason: Sleep Last Admin: 07/20/18 20:32 Dose: 3 mg Nicotine (Nicotine Inhaler*) 10 mg INH Q2H PRN PRN Reason: CRAVING Last Admin: 07/23/18 15:43 Dose: 10 mg Omeprazole (Prilosec Cap*) 20 mg PO DAILY@0600 [facility] Last Admin: 07/23/18 06:56 Dose: 20 mg Ondansetron HCl (Zofran Odt Tab*) 4 mg PO Q6H PRN PRN Reason: n/v Vital Signs - 8 hr 07/23/18 07/23/18 11:45 15:35 Temperature 97.3 F 98.1 F Pulse Rate 99 93 Respiratory 19 15 Rate Blood Pressure 122/58 115/89 (mmHg) O2 Sat by Pulse 99 98 Oximetry Oxygen Devices in Use Now: None Result Diagrams: 07/23/18 06:40 07/23/18 06:40 Microbiology and Other Data: Microbiology 07/16/18 01:05 Nasal Screen MRSA (PCR) - Final Nasal Mrsa Not Detected Assess/Plan/Problems-Billing Mr Epperson is a 48 yo M who states he is "in between doctors currently" who is on no medications and is super morbidly obese who presented to the ER with c/o weeping from the legs and was admitted for possible decompensated CHF. - Patient Problems (1) Acute decompensated heart failure Current Visit: Yes Status: Acute Code(s): I50.9 - HEART FAILURE, UNSPECIFIED SNOMED Code(s): 43126309 Comment: -Pt with acute on chronic decompensated HF with preserved EF. -Pt improved clinically also with continued improvement of BNP -Continue with Aggressive diuresis with Lasix -On D/C will convert to Torsemide 60 mg daily with low dose Metolazone and low salt diet (1-1.5 g Sodium per day) (2) Cellulitis and abscess of left leg Current Visit: Yes Status: Acute Code(s): L03.116 - CELLULITIS OF LEFT LOWER LIMB; L02.416 - CUTANEOUS ABSCESS OF LEFT LOWER LIMB SNOMED Code(s): 480475076 Comment: -Appreciate Dr. Marcial F/U inputD/Cd Rocephin and Flagyl and now on Augmentin, abx day #06/22 (3) Hypoxia Current Visit: Yes Status: Acute Code(s): R09.02 - HYPOXEMIA SNOMED Code(s ): 955661119 Comment: -O/N oximetry shows 11 desaturation events over 3 mins---will refer to Dr. Mancuso for outpt sleep study - Likely obesity hypoventilation and CHF leading to his hypoxia. He states he has O2 at home related to a dx of MARIA ISABEL but he does not have a CPAP machine. As the patient is diuresed will monitor respiratory status including O2 sat. (4) Elevated troponin Current Visit: Yes Status: Acute Code(s): R74.8 - ABNORMAL LEVELS OF OTHER SERUM ENZYMES SNOMED Code(s): 672105490 Comment: -Likley secondary to decompensated CHF. -CTA of chest negative for PE -Placed on ASA as per Dr. Morales and Shefali discussion (5) Morbid obesity Current Visit: Yes Status: Acute Code(s): E66.01 - MORBID (SEVERE) OBESITY DUE TO EXCESS CALORIES SNOMED Code(s): 278578916 Comment: Encourage diet and weight loss. The patient's morbid obesity is likely contributing to his infection and HF. HbA1c is quite good. (6) DVT prophylaxis Current Visit: Yes Status: Acute Code(s): EHS7147 - SNOMED Code(s): 952151941 Comment: katie Status and Disposition: -Given home is not a safe environment for D/C due to bed bugs, pt is pending placement
[2018-07-23] MEDS: Amoxicillin/Clavulanate TAB* 500 MG PO SCH (20:39)
[2018-07-24] MEDS: Omeprazole CAP* 20 MG PO SCH (06:14)
[2018-07-24] MEDS: Furosemide IV* 10 MG/ML 10 ML VIAL (100 MG) IV SCH ×2 (09:15→11:51)
[2018-07-24] MEDS: Amoxicillin/Clavulanate TAB* 500 MG PO SCH (09:17)
[2018-07-24] MEDS: Docusate CAP* 100 MG PO SCH (09:17)
[2018-07-24] MEDS: Aspirin TAB* 325 MG PO SCH (09:17)
[2018-07-24] MEDS: Enoxaparin(*) 40 MG/0.4 ML SYR SUBCUT SCH (09:18)
[2018-07-24 14:59] VITALS: BP 119/80
--- NOTE | 2018-07-25 02:18 | DS ---
CC: [facility] * DISCHARGE SUMMARY: DATE OF ADMISSION: 07/15/18 DATE OF DISCHARGE: 07/24/18 FINAL DISCHARGE DIAGNOSES: 1. Bilateral lower extremity cellulitis, left greater than right. 2. Acute-on chronic decompensated diastolic heart failure with preserved ejection fraction. 3. Demand-mediated ischemia with elevated troponin secondary to decompensated congestive heart failure. 4. Obstructive sleep apnea secondary to morbid obesity. 5. Medical noncompliance. 6. Pulmonary hypertension secondary to sleep apnea and obesity. HOSPITAL COURSE: The patient was admitted on 07/15/18, for bilateral lower extremity swelling with foul odor smell associated with shortness of breath, increased body weight. On presentation, the legs were weeping of fluid where he finally became more concerned and summoned the EMS. He has not been taking any of his cardiac medications as he has not had followup with primary or recent primary. He has ran out of his diuretic. In the emergency room, his exam reveals severe edema with purulent erythema of lower leg. His labs revealed elevated BNP of 416. Afebrile with temperature of 36.7, saturation was 76%, improved with BiPAP supplementation. The patient was admitted for acute hypoxic respiratory failure due to noncompliance secondary to congestive heart failure and volume overload. He was placed on strict I's and O's, fluid restriction, placed on BiPAP, admitted to ICU for monitoring and supportive care. At the same time, his troponin was slightly elevated, later on leveled off. It came back to be most likely demand- mediated due to his acute decompensated heart failure. He did have elevated D- dimer for which CT angiogram was negative for PE. As well, ultrasound of both legs were negative for DVT. He was later transferred to medical floor and he was maintained on intravenous Lasix with IV antibiotics and over the course of following the patient's next few days, he was consulted with Infectious Disease and recommended to transition to oral Augmentin. The patient was seen and evaluated by me today. He was sitting at the edge of the bed. Denies any complaints. He is able to the change the dressing himself. Tolerating p.o. and his weight has decreased from 433 down to 360 pounds. the patient and he deemed stable for discharge today. PHYSICAL EXAMINATION: His vital signs on discharge were as follows: Temperature 96.2, pulse 103, respiratory rate 15, satting 97%, blood pressure 116/76. Generally, he is morbidly obese, awake, alert, oriented, follows simple commands. Head and Neck: Normocephalic, atraumatic. Moist mucous membranes. I did not appreciate any crackles, rhonchi, or rales. Cardiovascular: S1, S2, tachycardic, but regular. Abdomen: Obese. Positive bowel sounds. Soft. Extremities: He does have chronic venous stasis both extremities. Dressings were changed, clean, dry, and intact. He does have some foul-smelling nonetheless. [employer] TE[employer]ER: No motor or focal sensory deficits. DIAGNOSTIC STUDIES/LAB DATA: His labs were significant for normal white count throughout the hospital stay. It peaked at 6.8, discharge at 5.2. His hematocrit ranging between 41 and 46, stable. His D-dimer was 623 (however, CT angiogram was negative for PE of the chest and ultrasound of lower legs was negative for DVT). His blood gas showed mild respiratory acidosis with pH 7.34 and pCO2 of 48 on presentation. His chemistry on discharge showed fairly normal electrolytes, potassium 3.5, sodium 140. His BNP was 416 down to 192 on discharge with BUN 24, creatinine 0.8. Microbiology, he was negative for MRSA screen. Cultures were all negative. Two-D echo was done, 07/15/18, reveals ejection fraction 55%. CT angiogram, 07/17/18, negative for PE. Ultrasound lower extremity, negative for DVT. DISCHARGE MEDICATIONS: 1. Amoxicillin twice a day, 500 b.i.d. 2. Aspirin 325 mg daily. 3. Omeprazole 20 mg daily. 4. Torsemide 60 mg daily. 5. Toprol-XL 25 at bedtime. 6. Potassium 20 mEq once a day. DISCHARGE RECOMMENDATIONS: The patient to follow up with [facility] on 07/31/18. Follow up with [facility] on 07/30/18 at 8:30 a.m. The patient to adhere to low-salt, low-cardiac, low-cholesterol diet. The patient to change his dressing daily, washing with mild soap and water, and continue wrapping with Vaseline gauze and rolled gauze. The patient instructed if he develops further fever, worsening of his edema to seek immediate medical attention. [id number]/[facility] #: [id number] [facility] HOSPITALShelby
== END 2018-07-24 15:40 | disposition home or self-care (01) | DRG 291 ==
LOC: ED 18:49 → ICU 22:31 → MED 07-17 20:09
PROVIDERS: ADMIT Hospitalist; ATTEND Internal Medicine
DX: I11.0 Hypertensive heart disease with heart failure (principal); J96.01 Acute respiratory failure with hypoxia; L03.116 Cellulitis of left lower limb; E87.2 Acidosis; I24.8 Other forms of acute ischemic heart disease; L03.115 Cellulitis of right lower limb; L02.416 Cutaneous abscess of left lower limb; Z68.43 Body mass index [BMI] 50.0-59.9, adult; E87.3 Alkalosis; I50.33 Acute on chronic diastolic (congestive) heart failure; E66.01 Morbid (severe) obesity due to excess calories; L85.9 Epidermal thickening, unspecified; I45.10 Unspecified right bundle-branch block; R71.8 Other abnormality of red blood cells; L08.9 Local infection of the skin and subcutaneous tissue, unspecified; F17.210 Nicotine dependence, cigarettes, uncomplicated; I07.1 Rheumatic tricuspid insufficiency; G47.33 Obstructive sleep apnea (adult) (pediatric); I27.23 Pulmonary hypertension due to lung diseases and hypoxia; I87.8 Other specified disorders of veins; Z91.14 Patient's other noncompliance with medication regimen; Z72.89 Other problems related to lifestyle; Z82.0 Family history of epilepsy and other diseases of the nervous system; Z82.49 Family history of ischemic heart disease and other diseases of the circulatory system; Z99.81 Dependence on supplemental oxygen; Z79.82 Long term (current) use of aspirin; Z87.01 Personal history of pneumonia (recurrent)
CPT/HCPCS: 36415; 71045; 71275; 80048; 80053; 80202; 81003; 81015; 82550; 82803; 83036; 83605; 83735; 83880; 84100; 84132; 84134; 84484; 85025; 85027; 85379; 85610; 85730; 86140; 86850; 86900; 86901; 87040; 87086; 87641; 93005; 93306; 94660; 94762; 99285; 99406; A9270-GY; C8929; G8978-GP-CI; G8979-GP-CI; G8980-GP-CI; J0692; J0696; J1650; J1940; J3370; J3475; J3490; Q9967